=== PATIENT | female | born 1995 | race Caucasian/White ===

== ENCOUNTER → 2017-08-31 | Outpatient (CLI) | payer OTHER ==
[~2017-08-31] MED LIST: CORT5TAB PO; DROS1TAB PO; FLUC150T PO; LEVO75TA43 PO; METR-1 PO; TRIAM.1%T TOPICAL
--- NOTE | 2017-08-31 14:51 | RADRPT ---
EXAM DATE/TIME: 08/31/2017 14:40 [place] COMPARISON: No previous studies available for comparison. INDICATIONS : Left ankle pain for 4 months MEDICAL HISTORY : None. SURGICAL HISTORY : None. ENCOUNTER: Initial ACUITY: 4 - 6 months PAIN SCORE: 5/10 LOCATION: Left entire ankle FINDINGS: Three view exam was performed of the left ankle. The bony structures are in normal alignment. No ev idence of fracture or dislocation. The ankle mortise is intact. Mild soft tissue thickening about t he medial lateral aspect the ankle. No radiopaque foreign bodies are seen. Bony mineralization is no rmal. CONCLUSION: Osseous structures about the ankle are grossly intact. Mild soft tissue thickening. The Sina Lockett MD on August 31, 2017 at 14:49 Board Certified Radiologist. This report was verified electronically.
== END ==
LOC: HRAD 14:28
PROVIDERS: ATTEND Family Medicine
DX: M25.572 Pain in left ankle and joints of left foot (principal)
CPT/HCPCS: 73610

== ENCOUNTER 2018-08-28 16:50 | Observation (INO) ==
[2018-08-28] MEDS ORDERED: Sod Chloride 0.9% Inj 1,000 ML IV.SIG ONE ×2 (17:20→18:55)
--- NOTE | 2018-08-28 17:32 | ED ---
HPI General Chief complaint: Nausea/Vomiting/Diarrhea Stated complaint: vomiting Time Seen by Provider: 08/28/18 17:08 Source: patient and family Mode of arrival: ambulatory Limitations: no limitations History of Present Illness HPI Narrative: 23 YO F with PMH of DM, panhypopituitarism presents to the ED for evaluation of ~6 week history of intermittent nausea and vomiting. The patient endorses 2-3 episodes daily. She is blind, unknown hematemesis. She endorses a few episodes of diarrhea, which she attributes to recent antibiotic use for a UTI. She denies headaches, dizziness, fevers, chills, abdominal pain, back pain, dysuria. She states that she took a dose of Zofran this morning, but vomited shortly afterwards. She states that she has had several PCP appointments since this illness started. She states that she has a gastroenterology appointment on Sep 04. Related Data Home Medications Medication Instructions Recorded Confirmed cetirizine 10 mg PO DAILY 08/06/18 08/28/18 desmopressin 0.2 mg PO BID 08/06/18 08/28/18 drospirenone-ethinyl estradiol 1 tab PO DAILY 08/06/18 08/28/18 [Ocella] levothyroxine 100 mcg PO DAILY 08/06/18 08/28/18 Previous Rx's Medication Instructions Recorded promethazine 12.5 mg PO Q6H PRN #7 tab 08/06/18 ondansetron [Zofran ODT] 4 mg PO Q6H PRN #7 tab 08/24/18 Allergies Allergy/AdvReac Type Severity Reaction Status Date / Time Sulfa (Sulfonamide Allergy Mild Rash, Verified 08/24/18 16:54 Antibiotics) Generalized Review of Systems ROS: all other systems reviewed are negative [facility] Medical History Medical History Demorsier syndrome (Acute) Diabetes insipidus (Acute) History of wisdom tooth extraction (Acute) Hyperpituitarism (Acute) Hypothyroidism (Acute) Social History Social History Substance History: No History of Abuse Second Hand Smoke Exposure: No Smoking Status: Never smoker How Often Do You Have a Drink Containing Alcohol: Monthly or less Recent Travel in [facility] within the Last 8 Weeks: No Recent Out of Country Travel within the Last 8 Weeks: No Course Initial Documented Vital Signs Temperature 97.4 F L 08/28/18 16:55 Pulse Rate 99 H 08/28/18 16:55 Respiratory Rate 18 08/28/18 16:55 Blood Pressure 142/97 H 08/28/18 16:55 Pulse Oximetry 97 08/28/18 16:55 Last Documented Vital Signs Temperature 97.8 F 08/28/18 22:02 Pulse Rate 97 H 08/28/18 22:02 Respiratory Rate 21 08/28/18 22:02 Blood Pressure 108/75 08/28/18 22:02 Pulse Oximetry 97 08/28/18 22:02 Medical Decision Making YAO Attestation YAO supervised visit: Yes Attestation: I was present with the advanced practitioner during the management of this patient. I discussed the case with the advanced practitioner and agree with the findings and plan as documented in their note except as noted below. 23yF with intractable nausea/ vomiting, seen several times in the ED over the past month, found to have hypoglycemia, acute kidney injury/ dehydration. MDM Narrative Medical decision making narrative: 23 YO F with PMH of DM, panhypopituitarism presents to the ED for evaluation of ~6 week history of intermittent nausea and vomiting. The patient endorses 2-3 episodes daily, worsening over time. She is blind, unknown hematemesis. She endorses a few episodes of diarrhea, which she attributes to recent antibiotic use for a UTI. Has a GI appointment on Sep 04. Mom is at bedside and states that she is worried because she will be out of state this weekend and the patient lives alone and will have no one to check on her. Vitals reviewed, afebrile on presentation. BGL ~40. The patient was administered D50, IVF, Zofran. On recheck the BGL is improved. Patient remains nauseated. She was administered a 2nd liter of fluid, IV Compazine and PO Benadryl. Lab work reveals BUN 1.17, GFR 56. Given the patients ongoing symptoms , plan to observe. The patient and her mother are agreeable to the plan. GI consult placed. Dr. Ivey agrees to accept the patient to the medicine service. Please see their notes for presentation. Medical Screen Exam Complete: Yes Emergency Medical Condition: Yes Differential Diagnosis Differential Diagnosis: diabetic gastroparesis versus GERD versus PUD versus metabolic derangement versus intractable nausea and vomiting versus other Lab Data Result diagrams: 08/28/18 19:15 08/28/18 19:15 Lab Results 08/28/18 08/28/18 08/28/18 Range/Units 18:53 19:15 19:15 WBC 9.1 (4.0-11.0) th/mm3 RBC 5.62 H (4.00-5.30) mil/mm3 Hgb 15.3 (11.6-15.3) gm/dL Hct 44.4 (35.0-46.0) % MCV 78.9 L (80.0-100.0) fL MCH 27.2 (27.0-34.0) pg MCHC 34.4 (32.0-36.0) % RDW 14.8 (11.6-17.2) % Plt Count 408 (150-450) th/mm3 MPV 10.4 (7.0-11.0) fL Neut % (Auto) 48.4 (16.0-70.0) % Lymph % (Auto) 33.8 (9.0-44.0) % Andrew % (Auto) 8.6 H (0.0-8.0) % Eos % (Auto) 8.0 H (0.0-4.0) % Baso % (Auto) 1.2 (0.0-2.0) % Neut # (Auto) 4.4 (1.8-7.7) th/mm3 Lymph # (Auto) 3.1 (1.0-4.8) th/mm3 Andrew # (Auto) 0.8 (0.0-0.9) th/mm3 Eos # (Auto) 0.7 H (0.0-0.4) th/mm3 Baso # (Auto) 0.1 (0.0-0.2) th/mm3 WBC Differential . Differential Comment Auto diff final Sodium 137 (136-145) meq/L Potassium 4.0 (3.5-5.1) meq/L Chloride 104 (98-107) meq/L Carbon Dioxide 14.9 L (21.0-32.0) meq/L Anion Gap 18 H (5-15) meq/L BUN Less than 1 L (7-18) mg/dL Creatinine 1.17 H (0.50-1.00) mg/dL Estimated GFR 56 L (>89) mL/min POC Glucose 172 H (68-110) mg/dl Random Glucose 43 L* (74-106) mg/dL Calcium 9.3 (8.5-10.1) mg/dL Total Bilirubin 0.8 (0.2-1.0) mg/dL AST 67 H (15-37) U/L ALT 33 (10-53) U/L Alkaline Phosphatase 62 (45-117) U/L Total Protein 8.5 H D (6.4-8.2) g/dL Albumin 3.8 (3.4-5.0) g/dL Lipase 340 (73-393) U/L Beta HCG, Qual (0-5) mIU/mL Urine Color (Yellw/Straw) Urine Clarity (Clear) Urine pH (5.0-8.5) Ur Specific [place] (1.002-1.035) Urine Protein (Neg-Trace) mg/dL Urine Glucose (UA) (Negative) mg/dL Urine Ketones (Negative) mg/dL Urine Occult Blood (Negative) Urine Nitrate (Negative) Urine Bilirubin (Negative) Urine Urobilinogen (Less than 2) mg/dL Ur Leukocyte Esterase (Negative) Urine RBC (0-3) /hpf Urine WBC (0-5) /hpf Ur Squamous Epith Cells (0-5) /hpf Urine Bacteria (None) /hpf Hyaline Casts (0-3) /lpf Urine Mucus (Occasional) /lpf Micro UA Comment Ur Microscopic Review Urine Culture Comments 08/28/18 08/28/18 08/28/18 Range/Units 19:15 21:12 21:20 WBC (4.0-11.0) th/mm3 RBC (4.00-5.30) mil/mm3 Hgb (11.6-15.3) gm/dL Hct (35.0-46.0) % MCV (80.0-100.0) fL MCH (27.0-34.0) pg MCHC (32.0-36.0) % RDW (11.6-17.2) % Plt Count (150-450) th/mm3 MPV (7.0-11.0) fL Neut % (Auto) (16.0-70.0) % Lymph % (Auto) (9.0-44.0) % Andrew % (Auto) (0.0-8.0) % Eos % (Auto) (0.0-4.0) % Baso % (Auto) (0.0-2.0) % Neut # (Auto) (1.8-7.7) th/mm3 Lymph # (Auto) (1.0-4.8) th/mm3 Andrew # (Auto) (0.0-0.9) th/mm3 Eos # (Auto) (0.0-0.4) th/mm3 Baso # (Auto) (0.0-0.2) th/mm3 WBC Differential Differential Comment Sodium (136-145) meq/L Potassium (3.5-5.1) meq/L Chloride (98-107) meq/L Carbon Dioxide (21.0-32.0) meq/L Anion Gap (5-15) meq/L BUN (7-18) mg/dL Creatinine (0.50-1.00) mg/dL Estimated GFR (>89) mL/min POC Glucose 97 (68-110) mg/dl Random Glucose (74-106) mg/dL Calcium (8.5-10.1) mg/dL Total Bilirubin (0.2-1.0) mg/dL AST (15-37) U/L ALT (10-53) U/L Alkaline Phosphatase (45-117) U/L Total Protein (6.4-8.2) g/dL Albumin (3.4-5.0) g/dL Lipase (73-393) U/L Beta HCG, Qual Less than 1.0 (0-5) mIU/mL Urine Color Yellow (Yellw/Straw) Urine Clarity Clear (Clear) Urine pH 5.0 (5.0-8.5) Ur Specific [place] 1.014 (1.002-1.035) Urine Protein 30 H (Neg-Trace) mg/dL Urine Glucose (UA) 50 (Negative) mg/dL Urine Ketones 80 or greater H (Negative) mg/dL Urine Occult Blood Negative (Negative) Urine Nitrate Negative (Negative) Urine Bilirubin Negative (Negative) Urine Urobilinogen Less than 2 (Less than 2) mg/dL Ur Leukocyte Esterase Trace H (Negative) Urine RBC 1 (0-3) /hpf Urine WBC 6 H (0-5) /hpf Ur Squamous Epith Cells 1 (0-5) /hpf Urine Bacteria Occasional H (None) /hpf Hyaline Casts 12 (0-3) /lpf Urine Mucus Few H (Occasional) /lpf Micro UA Comment Culture not ind Ur Microscopic Review Not Reportable Urine Culture Comments Culture not ind 08/28/18 08/28/18 Range/Units 22:35 23:01 WBC (4.0-11.0) th/mm3 RBC (4.00-5.30) mil/mm3 Hgb (11.6-15.3) gm/dL Hct (35.0-46.0) % MCV (80.0-100.0) fL MCH (27.0-34.0) pg MCHC (32.0-36.0) % RDW (11.6-17.2) % Plt Count (150-450) th/mm3 MPV (7.0-11.0) fL Neut % (Auto) (16.0-70.0) % Lymph % (Auto) (9.0-44.0) % Andrew % (Auto) (0.0-8.0) % Eos % (Auto) (0.0-4.0) % Baso % (Auto) (0.0-2.0) % Neut # (Auto) (1.8-7.7) th/mm3 Lymph # (Auto) (1.0-4.8) th/mm3 Andrew # (Auto) (0.0-0.9) th/mm3 Eos # (Auto) (0.0-0.4) th/mm3 Baso # (Auto) (0.0-0.2) th/mm3 WBC Differential Differential Comment Sodium (136-145) meq/L Potassium (3.5-5.1) meq/L Chloride (98-107) meq/L Carbon Dioxide (21.0-32.0) meq/L Anion Gap (5-15) meq/L BUN (7-18) mg/dL Creatinine (0.50-1.00) mg/dL Estimated GFR (>89) mL/min POC Glucose 66 L 136 H (68-110) mg/dl Random Glucose (74-106) mg/dL Calcium (8.5-10.1) mg/dL Total Bilirubin (0.2-1.0) mg/dL AST (15-37) U/L ALT (10-53) U/L Alkaline Phosphatase (45-117) U/L Total Protein (6.4-8.2) g/dL Albumin (3.4-5.0) g/dL Lipase (73-393) U/L Beta HCG, Qual (0-5) mIU/mL Urine Color (Yellw/Straw) Urine Clarity (Clear) Urine pH (5.0-8.5) Ur Specific [place] (1.002-1.035) Urine Protein (Neg-Trace) mg/dL Urine Glucose (UA) (Negative) mg/dL Urine Ketones (Negative) mg/dL Urine Occult Blood (Negative) Urine Nitrate (Negative) Urine Bilirubin (Negative) Urine Urobilinogen (Less than 2) mg/dL Ur Leukocyte Esterase (Negative) Urine RBC (0-3) /hpf Urine WBC (0-5) /hpf Ur Squamous Epith Cells (0-5) /hpf Urine Bacteria (None) /hpf Hyaline Casts (0-3) /lpf Urine Mucus (Occasional) /lpf Micro UA Comment Ur Microscopic Review Urine Culture Comments Discharge Plan Discharge Disposition Patient Disposition: 30 Still Patient Physicians Team ED Provider: Kavitha Curtis ED Midlevel Provider: Judy Escalona Primary Care Provider: Selina Clay Attending Provider: Gracie Ivey Other Providers: Radu Avalos Status ED Status: Left Department Discharge Information Discharge Date/Time: 08/28/18 21:54
[2018-08-28 19:37] LABS: Baso # (Auto) 0.1 th/mm3 (0.0-0.2); Baso % (Auto) 1.2 % (0.0-2.0); Eos # (Auto) 0.7 th/mm3 (0.0-0.4); Hematocrit 44.4 % (35.0-46.0); Hemoglobin 15.3 gm/dL (11.6-15.3); Lymph # (Auto) 3.1 th/mm3 (1.0-4.8); Lymph % (Auto) 33.8 % (9.0-44.0); Mean Corpuscular HGB Conc 34.4 % (32.0-36.0); Mean Corpuscular Hemoglobin 27.2 pg (27.0-34.0); Mean Corpuscular Volume 78.9 fL (80.0-100.0); Mean Platelet Volume 10.4 fL (7.0-11.0); Mono # (Auto) 0.8 th/mm3 (0.0-0.9); Mono % (Auto) 8.6 % (0.0-8.0); Neut # (Auto) 4.4 th/mm3 (1.8-7.7); Neut % (Auto) 48.4 % (16.0-70.0); Platelet Count 408 th/mm3 (150-450); Red Blood Count 5.62 mil/mm3 (4.00-5.30); Red Cell Distribution Width 14.8 % (11.6-17.2); White Blood Count 9.1 th/mm3 (4.0-11.0)
[2018-08-28 19:59] LABS: Alanine Aminotransferase 33 U/L (10-53); Albumin 3.8 g/dL (3.4-5.0); Alkaline Phosphatase 62 U/L (45-117); Anion Gap 18 meq/L (5-15); Aspartate Aminotransferase 67 U/L (15-37); Calcium 9.3 mg/dL (8.5-10.1); Carbon Dioxide 14.9 meq/L (21.0-32.0); Chloride 104 meq/L (98-107); Glomerular Filtration Rate 56 mL/min (>89); Lipase 340 U/L (73-393); Sodium 137 meq/L (136-145); Total Protein 8.5 g/dL (6.4-8.2)
[2018-08-28 20:06] LABS: Glucose,Random 43 mg/dL (74-106)
[2018-08-28] MEDS ORDERED: Dextrose 50% in Water 50 ML Vial IV.PUSH PRN (21:00)
[2018-08-28] MEDS ORDERED: Acetaminophen 325 MG Tablet PO PRN (21:01)
[2018-08-28] MEDS ORDERED: Bisacodyl 10 MG Supp RECTAL PRN (21:01)
--- NOTE | 2018-08-28 21:04 | P.HPIM ---
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 This is pt' s 5th ER visit in the last month for similar complaints, CT Abd/Pelvis 08/06/18 w/ no acute findings. Has also seen PCP on multiple occasions for same, however no improvement w/ antiemetics. Does have upcoming appt w/ Financial Aid Officer on 09/05 and GI on 09/04/18. On arrival, pt noted to be hypoglycemia w/ BS 40's, s/p D50 w/ improvement, BS now stabilized. BP 142/97, HR 99, O2 afebrile. CBC unremarkable. Creatinine 1.17, previously 0.82 on . AG 18. S/p Zofran and Compazine in ER w/ some improvement. - Diagnosis (1) Intractable nausea and vomiting (2) CARLOS ENRIQUE (acute kidney injury) (3) Hypoglycemia Review of Systems PAST FAMILY HISTORY: Reviewed. No h/o DM or CAD All other systems reviewed negative except as stated in HPI PMFSH - History History Provided By: Patient, Family Member - Medical History Medical History: Medical History (Last Reviewed 08/24/18 @ 16:59 by Srikanth Barbosa MD) Demorsier syndrome Diabetes insipidus History of wisdom tooth extraction Hyperpituitarism Hypothyroidism - Tobacco History Second Hand Smoke Exposure: No Smoking Status: Never smoker - Alcohol History How Often Do You Have a Drink Containing Alcohol: 2 to 3 times a week - Substance Use History Substance History: No History of Abuse - Travel History Recent Travel in the [place] Within the Last 8 Weeks: No Recent Travel Out of the Country Within the Last 8 Weeks: No - Immunization History Tetanus Immunization: Unsure Medications and Allergies Allergies Allergy/AdvReac Type Severity Reaction Status Date / Time Sulfa (Sulfonamide Allergy Mild Rash, Verified 08/24/18 16:54 Antibiotics) Generalized Home Medications Medication Instructions Recorded Confirmed Type cetirizine 10 mg PO DAILY 08/06/18 08/28/18 History desmopressin 0.2 mg PO BID 08/06/18 08/28/18 History drospirenone-ethinyl estradiol 1 tab PO DAILY 08/06/18 08/28/18 History [Ocella] levothyroxine 100 mcg PO DAILY 08/06/18 08/28/18 History Exam Vital signs: Vital Signs 08/28/18 16:55 08/28/18 17:31 Temperature 97.4 F L Pulse Rate 99 H 72 Respiratory Rate 18 18 Blood Pressure 142/97 H 104/72 Pulse Oximetry 97 95 Intake & Output 08/28/18 08/28/18 08/29/18 06:59 18:59 06:59 Intake Total 1000 / 1000 Balance 1000 / 1000 Weight 90.718 kg Intake: IV 1000 / 1000 NS Inj 1,000 ML @ Wide Open IV. 1000 / 1000 SIG BOLUS ONE Rx#:[id number] Narrative: PE: GENERAL: Pleasant young female in no acute distress, legally blind. Mother at bedside. SKIN: Focused skin assessment warm and dry. HEENT: Legally blind. No scleral icterus or conjunctival pallor. No lid lag or facial droop. CARDIOVASCULAR: Regular rate and rhythm. No obvious murmurs to auscultation. No chest tenderness to palpation. RESPIRATORY: No obvious rhonchi or wheezing. Clear to auscultation. Breath sounds equal bilaterally. GASTROINTESTINAL: Abdomen soft, non-tender, nondistended. BS normal. MUSCULOSKELETAL: Extremities without clubbing, cyanosis, or edema. No obvious deformities. NEUROLOGICAL: Awake, alert and oriented x4. No focal neurologic deficits. Moving both upper and lower extremities spontaneously. PSYCHIATRIC: Appropriate mood and affect. Insight and judgment normal. Results - Labs CBC & Chem 7: 08/28/18 19:15 08/28/18 19:15 Labs: Short CBC 08/28/18 Range/Units 19:15 WBC 9.1 (4.0-11.0) th/mm3 Hgb 15.3 (11.6-15.3) gm/dL Hct 44.4 (35.0-46.0) % Plt Count 408 (150-450) th/mm3 BMP 08/28/18 19:15 Sodium 137 Potassium 4.0 Chloride 104 Carbon Dioxide 14.9 L BUN Less than 1 L Creatinine 1.17 H Calcium 9.3 Liver Function 08/28/18 Range/Units 19:15 Total Bilirubin 0.8 (0.2-1.0) mg/dL AST 67 H (15-37) U/L ALT 33 (10-53) U/L Alkaline Phosphatase 62 (45-117) U/L Albumin 3.8 (3.4-5.0) g/dL Caprini VTE Risk Assessment Caprini VTE Risk Assessment: No/Low Risk (score <= 1) Caprini Risk Assessment Model: Point Value = 1 Point Value = 2 Point Value = 3 Point Value = 5 Age 41-60 Minor surgery BMI > 25 kg/m2 Swollen legs Varicose veins or History of unexplained or recurrent spontaneous Oral contraceptives or hormone replacement Sepsis (< 1 month) Serious lung disease, including pneumonia (< 1 month) Abnormal pulmonary function Acute myocardial infarction Congestive heart failure (< 1 month) History of inflammatory bowel disease Medical patient at bed rest Age 61-74 Arthroscopic surgery Major open surgery (> 45 min) Laparoscopic surgery (> 45 min) Malignancy Confined to bed (> 72 hours) Immobilizing plaster cast Central venous access Age >= 75 History of VTE Family history of VTE Factor V Leiden Prothrombin [id number] Lupus anticoagulant Anticardiolipin antibodies Elevated serum homocysteine Heparin-induced thrombocytopenia Other congenital or acquired thrombophilia Stroke (< 1 month) Elective arthroplasty Hip, pelvis, or leg fracture Acute spinal cord injury (< 1 month) Prophylaxis Regimen: Total Risk Factor Score Risk Level Prophylaxis Regimen 0-1 Low Early ambulation 2 Moderate Order ONE of the following: *Sequential Compression Device (SCD) *Heparin 5000 units SQ BID 3-4 Higher Order ONE of the following medications: *Heparin 5000 units SQ TID *Enoxaparin/Lovenox 40 mg SQ daily (WT < 150 kg, CrCl > 30 mL/min) *Enoxaparin/Lovenox 30 mg SQ daily (WT < 150 kg, CrCl > 10-29 mL/min) *Enoxaparin/Lovenox 30 mg SQ BID (WT < 150 kg, CrCl > 30 mL/min) AND/OR *Sequential Compression Device (SCD) 5 or more Highest Order ONE of the following medications: *Heparin 5000 units SQ TID (Preferred with Epidurals) *Enoxaparin/Lovenox 40 mg SQ daily (WT < 150 kg, CrCl > 30 mL/min) *Enoxaparin/Lovenox 30 mg SQ daily (WT < 150 kg, CrCl > 10-29 mL/min) *Enoxaparin/Lovenox 30 mg SQ BID (WT < 150 kg, CrCl > 30 mL/min) AND *Sequential Compression Device (SCD) Assessment and Plan - Assessment (1) Intractable nausea and vomiting Code(s): R11.2 - Nausea with vomiting, unspecified Status: Acute (2) CARLOS ENRIQUE (acute kidney injury) Code(s): N17.9 - Acute kidney failure, unspecified Status: Acute (3) Hypoglycemia Code(s): E16.2 - Hypoglycemia, unspecified Status: Acute - Plan A/P: 1. Intractable Nausea/Vomiting: ongoing x6 wks, minimal improvement w/ antiemetics. Continue Zofran/Compazine, add Tigan. Has upcoming appt w/ GI in [place] on 09/04/18, will consult GI for further eval/intervention as needed. Check B-HCG. IVF for hydration, diet as tolerated. 2. CARLOS ENRIQUE: Creatinine 1.17, previously 0.82 on 08/24/18, secondary to above, continue IVF for hydration, check U/a to eval for underlying UTI, monitor I/O, repeat labs in am. 3. Hypoglycemia: BS 40's on arrival, s/p D50 w/ improvement, Accu-Checks q2h, monitor BS closely. H/o Panhypopituitarism, has upcoming appt w/ Financial Aid Officer 09/05/18. 4. DVT Prophylaxis: SCD/Teds 5. Social work for d/c planning as needed. 6. Case discussed w/ ER physician at length, labs/records/imaging reviewed by me.
[2018-08-28] MEDS ORDERED: Sod Chloride 0.9% Inj 1,000 ML IV.CONT SCH (21:15)
[2018-08-28 21:58] LABS: Bacteria,Urine Occasional /hpf; Bilirubin,Urine Negative (Negative); Clarity,Urine Clear (Clear); Color,Urine Yellow (Yellw/Straw); Glucose,Urine (UA) 50 mg/dL (Negative); Hyaline Casts,Urine 12 /lpf (0-3); Leukocyte Esterase,Urine Trace (Negative); Mucus,Urine Few /lpf (Occasional); Nitrite,Urine Negative (Negative); Specific Gravity,Urine 1.014 (1.002-1.035); Squamous Epithelial Cell,Urine 1 /hpf (0-5)
[2018-08-29] MEDS: Dextrose 5%/NaCl 0.45% Inj 1,000 ML IV.CONT SCH ×2 (01:04→11:33)
[2018-08-29 07:11] LABS: Hematocrit 39.8 % (35.0-46.0); Hemoglobin 14.4 gm/dL (11.6-15.3); Mean Corpuscular Volume 77.4 fL (80.0-100.0); Mean Platelet Volume 10.6 fL (7.0-11.0); Platelet Count 374 th/mm3 (150-450); Red Blood Count 5.14 mil/mm3 (4.00-5.30); Red Cell Distribution Width 14.6 % (11.6-17.2); White Blood Count 9.3 th/mm3 (4.0-11.0)
[2018-08-29 07:34] LABS: Mean Corpuscular HGB Conc 36.2 % (32.0-36.0)
[2018-08-29] MEDS: Senna/Docusate Sodium 8.6/50 MG Tablet PO SCH (08:38)
--- NOTE | 2018-08-29 09:23 | P.CONGI ---
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 Patient presented to the emergency department yesterday with complaints of intractable nausea and vomiting for the past month. Patient has had five visits since the beginning of August for this complaint, patient also reports multiple visits to her PCP for the same. She has tried Zofran and Phenergan with minimal relief in symptoms. She does state that the nausea and vomiting has been intermittent over the past month but that she only has rare good days. She denies any hematemesis or coffee-ground emesis. She denies any associated abdominal pain. She states that her bowel movements are regular, last one was yesterday. Patient denies any fever or chills. Denies ingestion of suspicious foods, recent travel, recent antibiotics. She reports that she takes Aleve rarely for headaches. Denies any dizziness preceding episodes of vomit. Does not notice that the emesis is related to PO intake or more noticeable at certain times throughout the day. She denies any recent new medications other than the antiemetics previously listed. Patient denies any history of GI issues. She states that she drinks alcohol rarely. She denies nicotine use and history of. She denies any illicit drug use. Patient has never had an endoscopy or colonoscopy in the past. Patient does state that she had similar symptoms in eighth grade when she was admitted to PICU with panhypopituitarism, she also had diarrhea at that time. <Jerilyn John - Last Filed: 08/29/18 08:53> Review of Systems Constitutional: Denies chills, Denies fever(s) Cardiovascular: Denies chest pain Respiratory: Denies shortness of breath Gastrointestinal: Reports nausea, Reports vomiting, Denies abdominal pain, Denies black, tarry stools, Denies bright, red blood in stools, Denies vomiting blood <Jerilyn John - Last Filed: 08/29/18 08:53> [facility] - History History Provided By: Patient - Medical History Medical History: Medical History (Last Reviewed 08/28/18 @ 22:19 by NOAH Pierre) Demorsier syndrome Diabetes insipidus History of wisdom tooth extraction Hyperpituitarism Hypothyroidism - Tobacco History Second Hand Smoke Exposure: No Smoking Status: Never smoker - Alcohol History How Often Do You Have a Drink Containing Alcohol: Monthly or less - Substance Use History Substance History: No History of Abuse - Travel History Recent Travel in the [place] Within the Last 8 Weeks: No Recent Travel Out of the Country Within the Last 8 Weeks: No - Immunization History Tetanus Immunization: Unsure <Jerilyn John - Last Filed: 08/29/18 08:53> - Medical History Medical History: Medical History (Last Reviewed 08/28/18 @ 22:19 by NOAH Pierre) Demorsier syndrome Diabetes insipidus History of wisdom tooth extraction Hyperpituitarism Hypothyroidism <Radu Avalos - Last Filed: 08/29/18 22:03> Medications and Allergies Active Medications: Active Medications Acetaminophen (Tylenol) 650 mg PO Q4H PRN PRN Reason: Temp > 100.4 Al Hydroxide/Mg Hydroxide (Milk Of Magnesia Liq) 30 ml PO Q12H PRN PRN Reason: Mild Constipation Bisacodyl (Dulcolax Supp) 10 mg RECTAL DAILY PRN PRN Reason: SEVERE CONSITIPATION Desmopressin Acetate (Ddavp) 0.2 mg PO BID [facility] Last Admin: 08/29/18 08:38 Dose: 0.2 mg Dextrose (D50w Vial) 50 ml IV.PUSH UNSCH PRN PRN Reason: PER HYPOGLYCEMIA PROTOCOL Last Admin: 08/28/18 22:49 Dose: 50 ml Glucagon (Glucagon Inj) 1 mg OTHER PRN PRN PRN Reason: for Hypoglycemia Protocol Dextrose/Sodium Chloride (D5w/1/2 Ns Inj) 1,000 mls @ 100 mls/hr IV.CONT .Q10H [facility] Last Admin: 08/29/18 01:04 Dose: 100 mls/hr Lactulose (Lactulose Liq) 30 ml PO DAILY PRN PRN Reason: SEVERE CONSITIPATION Ondansetron HCl (Zofran Inj) 4 mg IV.PUSH Q6H PRN PRN Reason: NAUSEA OR VOMITING Prochlorperazine Edisylate (Compazine Inj) 10 mg IV.PUSH Q6H PRN PRN Reason: NAUSEA/VOMITING Senna/Docusate Sodium (Shannon-Colace) 1 tab PO BID [facility] Last Admin: 08/29/18 08:38 Dose: 1 tab Sennosides (Senokot) 17.2 mg PO Q12H PRN PRN Reason: Moderate Constipation Trimethobenzamide HCl (Tigan Ing) 200 mg IM Q8H PRN PRN Reason: NAUSEA/VOMITING <Jerilyn John - Last Filed: 08/29/18 08:53> Active Medications: Active Medications Acetaminophen (Tylenol) 650 mg PO Q4H PRN PRN Reason: Temp > 100.4 Al Hydroxide/Mg Hydroxide (Milk Of Magnesia Liq) 30 ml PO Q12H PRN PRN Reason: Mild Constipation Bisacodyl (Dulcolax Supp) 10 mg RECTAL DAILY PRN PRN Reason: SEVERE CONSITIPATION Desmopressin Acetate (Ddavp) 0.2 mg PO BID [facility] Last Admin: 08/29/18 20:44 Dose: 0.2 mg Dextrose (D50w Vial) 50 ml IV.PUSH UNSCH PRN PRN Reason: PER HYPOGLYCEMIA PROTOCOL Last Admin: 08/28/18 22:49 Dose: 50 ml Glucagon (Glucagon Inj) 1 mg OTHER PRN PRN PRN Reason: for Hypoglycemia Protocol Dextrose/Sodium Chloride (D5w/1/2 Ns Inj) 1,000 mls @ 100 mls/hr IV.CONT .Q10H [facility] Last Admin: 08/29/18 11:33 Dose: 100 mls/hr Lactulose (Lactulose Liq) 30 ml PO DAILY PRN PRN Reason: SEVERE CONSITIPATION Levothyroxine Sodium (Synthroid) 100 mcg PO DAILY@0600 [facility] Ondansetron HCl (Zofran Inj) 4 mg IV.PUSH Q6H PRN PRN Reason: NAUSEA OR VOMITING Prochlorperazine Edisylate (Compazine Inj) 10 mg IV.PUSH Q6H PRN PRN Reason: NAUSEA/VOMITING Last Admin: 08/29/18 10:07 Dose: 10 mg Senna/Docusate Sodium (Shannon-Colace) 1 tab PO BID [facility] Last Admin: 08/29/18 08:38 Dose: 1 tab Sennosides (Senokot) 17.2 mg PO Q12H PRN PRN Reason: Moderate Constipation Trimethobenzamide HCl (Tigan Ing) 200 mg IM Q8H PRN PRN Reason: NAUSEA/VOMITING <Radu Avalos - Last Filed: 08/29/18 22:03> Allergies Allergy/AdvReac Type Severity Reaction Status Date / Time Sulfa (Sulfonamide Allergy Mild Rash, Verified 08/24/18 16:54 Antibiotics) Generalized Home Medications Medication Instructions Recorded Confirmed Type cetirizine 10 mg PO DAILY 08/06/18 08/28/18 History desmopressin 0.2 mg PO BID 08/06/18 08/28/18 History drospirenone-ethinyl estradiol 1 tab PO DAILY 08/06/18 08/28/18 History [[place]] levothyroxine 100 mcg PO DAILY 08/06/18 08/28/18 History Exam Vital signs: Vital Signs 08/28/18 16:55 08/28/18 17:31 08/28/18 21:04 Temperature 97.4 F L Pulse Rate 99 H 72 85 Respiratory Rate 18 18 18 Blood Pressure 142/97 H 104/72 147/78 H Pulse Oximetry 97 95 99 08/28/18 22:02 08/29/18 00:00 08/29/18 04:00 Temperature 97.8 F 98.1 F 98.5 F Pulse Rate 97 H 95 H 92 H Respiratory Rate 21 16 16 Blood Pressure 108/75 129/76 92/59 L Pulse Oximetry 97 97 95 08/29/18 07:46 Temperature 98.4 F Pulse Rate 92 H Respiratory Rate 16 Blood Pressure 109/76 Pulse Oximetry 94 L Intake & Output 08/28/18 08/29/18 08/29/18 18:59 06:59 18:59 Intake Total 2300 / 2300 Balance 2300 / 2300 Weight 90.718 kg 90.718 kg Intake: IV 2300 / 2300 NS Inj 1,000 ML @ 100 mls/hr IV 300 / 300 .CONT .Q10H [facility] Rx#:[id number] NS Inj 1,000 ML @ Wide Open IV. 1999 / 1999 [facility] ONE Rx#:[id number] Oral 0 / 0 Other: # Voids 1 Date of Last Bowel Movement 08/28/18 Weight On Admission 90.718 kg - Constitutional no acute distress - Routine HEENT Exam Head: Present: normocephalic, atraumatic - Routine Respiratory Exam Absent: accessory muscle use - Routine Cardiovascular Exam Present: RRR - Routine Abdominal Exam Present: soft, normoactive bowel sounds. Absent: tenderness, distended - Routine Skin Exam Present: dry, warm - Routine Neurological Exam Present: alert, oriented X3 <Jerilyn John - Last Filed: 08/29/18 08:53> Vital signs: Vital Signs 08/29/18 00:00 08/29/18 04:00 08/29/18 07:46 Temperature 98.1 F 98.5 F 98.4 F Pulse Rate 95 H 92 H 92 H Respiratory Rate 16 16 16 Blood Pressure 129/76 92/59 L 109/76 Pulse Oximetry 97 95 94 L 08/29/18 12:01 08/29/18 15:33 08/29/18 19:32 Temperature 97.9 F 98.2 F 98.6 F Pulse Rate 95 H 90 87 Respiratory Rate 16 16 14 Blood Pressure 104/74 99/64 L 123/74 Pulse Oximetry 94 L 96 97 Intake & Output 08/29/18 08/29/18 08/30/18 06:59 18:59 06:59 Intake Total 2300 / 2300 1000 / 1000 Balance 2300 / 2300 1000 / 1000 Weight 90.718 kg Intake: IV 2300 / 2300 1000 / 1000 D5W/1/2 NS Inj 1,000 ML @ 100 1000 / 1000 mls/hr IV.CONT .Q10H [facility] Rx#: [id number] NS Inj 1,000 ML @ 100 mls/hr IV 300 / 300 .CONT .Q10H [facility] Rx#:[id number] NS Inj 1,000 ML @ Wide Open IV. 1999 SIG BOLUS ONE Rx#:[id number] Oral 0 / 0 Other: # Voids 1 Date of Last Bowel Movement 08/28/18 08/28/18 Weight On Admission 90.718 kg <Radu Avalos - Last Filed: 08/29/18 22:03> Results - Labs CBC & Chem 7: 08/29/18 05:53 08/28/18 19:15 Labs: Laboratory Results - last 24 hr 08/28/18 08/28/18 08/28/18 18:53 19:15 19:15 WBC 9.1 RBC 5.62 H Hgb 15.3 Hct 44.4 MCV 78.9 L MCH 27.2 MCHC 34.4 RDW 14.8 Plt Count 408 MPV 10.4 Prelim Diff (Auto) Neut % (Auto) 48.4 Lymph % (Auto) 33.8 [place] % (Auto) 8.6 H Eos % (Auto) 8.0 H Baso % (Auto) 1.2 Neut # (Auto) 4.4 Lymph # (Auto) 3.1 [place] # (Auto) 0.8 Eos # (Auto) 0.7 H Baso # (Auto) 0.1 WBC Differential . Differential Comment Auto diff final Sodium 137 Potassium 4.0 Chloride 104 Carbon Dioxide 14.9 L Anion Gap 18 H BUN Less than 1 L Creatinine 1.17 H Estimated GFR 56 L POC Glucose 172 H Random Glucose 43 L* Calcium 9.3 Total Bilirubin 0.8 AST 67 H ALT 33 Alkaline Phosphatase 62 Total Protein 8.5 H D Albumin 3.8 Lipase 340 Beta HCG, Qual Urine Color Urine Clarity Urine pH Ur Specific Mallie Urine Protein Urine Glucose (UA) Urine Ketones Urine Occult Blood Urine Nitrate Urine Bilirubin Urine Urobilinogen Ur Leukocyte Esterase Urine RBC Urine WBC Ur Squamous Epith Cells Urine Bacteria Hyaline Casts Urine Mucus Micro UA Comment Ur Microscopic Review Urine Culture Comments 08/28/18 08/28/18 08/28/18 19:15 21:12 21:20 WBC RBC Hgb Hct MCV MCH MCHC RDW Plt Count MPV Prelim Diff (Auto) Neut % (Auto) Lymph % (Auto) [place] % (Auto) Eos % (Auto) Baso % (Auto) Neut # (Auto) Lymph # (Auto) [place] # (Auto) Eos # (Auto) Baso # (Auto) WBC Differential Differential Comment Sodium Potassium Chloride Carbon Dioxide Anion Gap BUN Creatinine Estimated GFR POC Glucose 97 Random Glucose Calcium Total Bilirubin AST ALT Alkaline Phosphatase Total Protein Albumin Lipase Beta HCG, Qual Less than 1.0 Urine Color Yellow Urine Clarity Clear Urine pH 5.0 Ur Specific Mallie 1.014 Urine Protein 30 H Urine Glucose (UA) 50 Urine Ketones 80 or greater H Urine Occult Blood Negative Urine Nitrate Negative Urine Bilirubin Negative Urine Urobilinogen Less than 2 Ur Leukocyte Esterase Trace H Urine RBC 1 Urine WBC 6 H Ur Squamous Epith Cells 1 Urine Bacteria Occasional H Hyaline Casts 12 Urine Mucus Few H Micro UA Comment Culture not ind Ur Microscopic Review Not Reportable Urine Culture Comments Culture not ind 08/28/18 08/28/18 08/28/18 22:35 23:01 23:57 WBC RBC Hgb Hct MCV MCH MCHC RDW Plt Count MPV Prelim Diff (Auto) Neut % (Auto) Lymph % (Auto) [place] % (Auto) Eos % (Auto) Baso % (Auto) Neut # (Auto) Lymph # (Auto) [place] # (Auto) Eos # (Auto) Baso # (Auto) WBC Differential Differential Comment Sodium Potassium Chloride Carbon Dioxide Anion Gap BUN Creatinine Estimated GFR POC Glucose 66 L 136 H 129 H Random Glucose Calcium Total Bilirubin AST ALT Alkaline Phosphatase Total Protein Albumin Lipase Beta HCG, Qual Urine Color Urine Clarity Urine pH Ur Specific Mallie Urine Protein Urine Glucose (UA) Urine Ketones Urine Occult Blood Urine Nitrate Urine Bilirubin Urine Urobilinogen Ur Leukocyte Esterase Urine RBC Urine WBC Ur Squamous Epith Cells Urine Bacteria Hyaline Casts Urine Mucus Micro UA Comment Ur Microscopic Review Urine Culture Comments 08/29/18 08/29/18 08/29/18 02:07 03:57 05:53 WBC 9.3 RBC 5.14 Hgb 14.4 Hct 39.8 MCV 77.4 L MCH 28.0 MCHC 36.2 H RDW 14.6 Plt Count 374 MPV 10.6 Prelim Diff (Auto) Manual diff required Neut % (Auto) Lymph % (Auto) [place] % (Auto) Eos % (Auto) Baso % (Auto) Neut # (Auto) Lymph # (Auto) [place] # (Auto) Eos # (Auto) Baso # (Auto) WBC Differential Differential Comment . Sodium Potassium Chloride Carbon Dioxide Anion Gap BUN Creatinine Estimated GFR POC Glucose 88 84 Random Glucose Calcium Total Bilirubin AST ALT Alkaline Phosphatase Total Protein Albumin Lipase Beta HCG, Qual Urine Color Urine Clarity Urine pH Ur Specific Mallie Urine Protein Urine Glucose (UA) Urine Ketones Urine Occult Blood Urine Nitrate Urine Bilirubin Urine Urobilinogen Ur Leukocyte Esterase Urine RBC Urine WBC Ur Squamous Epith Cells Urine Bacteria Hyaline Casts Urine Mucus Micro UA Comment Ur Microscopic Review Urine Culture Comments 08/29/18 08/29/18 06:44 08:49 WBC RBC Hgb Hct MCV MCH MCHC RDW Plt Count MPV Prelim Diff (Auto) Neut % (Auto) Lymph % (Auto) [place] % (Auto) Eos % (Auto) Baso % (Auto) Neut # (Auto) Lymph # (Auto) [place] # (Auto) Eos # (Auto) Baso # (Auto) WBC Differential Differential Comment Sodium Potassium Chloride Carbon Dioxide Anion Gap BUN Creatinine Estimated GFR POC Glucose 85 99 Random Glucose Calcium Total Bilirubin AST ALT Alkaline Phosphatase Total Protein Albumin Lipase Beta HCG, Qual Urine Color Urine Clarity Urine pH Ur Specific Mallie Urine Protein Urine Glucose (UA) Urine Ketones Urine Occult Blood Urine Nitrate Urine Bilirubin Urine Urobilinogen Ur Leukocyte Esterase Urine RBC Urine WBC Ur Squamous Epith Cells Urine Bacteria Hyaline Casts Urine Mucus Micro UA Comment Ur Microscopic Review Urine Culture Comments <DionicioJerilyn hart - Last Filed: 08/29/18 08:53> - Labs CBC & Chem 7: 08/29/18 05:53 08/29/18 10:42 Labs: Laboratory Results - last 24 hr 08/28/18 08/28/18 08/28/18 19:15 22:35 23:01 WBC RBC Hgb Hct MCV MCH MCHC RDW Plt Count MPV Prelim Diff (Auto) WBC Differential Seg Neuts % (Manual) Lymphocytes % (Manual) Monocytes % (Manual) Eosinophils % (Manual) Abs Neuts (Manual) Differential Comment Platelet Estimate Platelet Morphology Sodium Potassium Chloride Carbon Dioxide Anion Gap BUN Creatinine Estimated GFR POC Glucose 66 L 136 H Random Glucose Hemoglobin A1c Calcium Total Bilirubin AST ALT Alkaline Phosphatase Total Protein Albumin TSH Beta HCG, Qual Less than 1.0 08/28/18 08/29/18 08/29/18 23:57 02:07 03:57 WBC RBC Hgb Hct MCV MCH MCHC RDW Plt Count MPV Prelim Diff (Auto) WBC Differential Seg Neuts % (Manual) Lymphocytes % (Manual) Monocytes % (Manual) Eosinophils % (Manual) Abs Neuts (Manual) Differential Comment Platelet Estimate Platelet Morphology Sodium Potassium Chloride Carbon Dioxide Anion Gap BUN Creatinine Estimated GFR POC Glucose 129 H 88 84 Random Glucose Hemoglobin A1c Calcium Total Bilirubin AST ALT Alkaline Phosphatase Total Protein Albumin TSH Beta HCG, Qual 08/29/18 08/29/18 08/29/18 05:53 05:53 06:44 WBC 9.3 RBC 5.14 Hgb 14.4 Hct 39.8 MCV 77.4 L MCH 28.0 MCHC 36.2 H RDW 14.6 Plt Count 374 MPV 10.6 Prelim Diff (Auto) Manual diff required WBC Differential Manual diff final Seg Neuts % (Manual) 47 Lymphocytes % (Manual) 31 Monocytes % (Manual) 13 H Eosinophils % (Manual) 9 H Abs Neuts (Manual) 4.4 Differential Comment . Platelet Estimate Normal Platelet Morphology Normal Sodium Potassium Chloride Carbon Dioxide Anion Gap BUN Creatinine Estimated GFR POC Glucose 85 Random Glucose Hemoglobin A1c 4.8 Calcium Total Bilirubin AST ALT Alkaline Phosphatase Total Protein Albumin TSH Beta HCG, Qual 08/29/18 08/29/18 08/29/18 08:49 10:42 10:42 WBC RBC Hgb Hct MCV MCH MCHC RDW Plt Count MPV Prelim Diff (Auto) WBC Differential Seg Neuts % (Manual) Lymphocytes % (Manual) Monocytes % (Manual) Eosinophils % (Manual) Abs Neuts (Manual) Differential Comment Platelet Estimate Platelet Morphology Sodium 139 Potassium 3.4 L Chloride 107 Carbon Dioxide 15.9 L Anion Gap 16 H BUN Less than 1 L Creatinine 1.08 H Estimated GFR 62 L POC Glucose 99 Random Glucose 99 Hemoglobin A1c Calcium 8.7 Total Bilirubin 0.6 AST 47 H ALT 24 Alkaline Phosphatase 51 Total Protein 6.9 D Albumin 3.1 L D TSH 5.870 H Beta HCG, Qual 08/29/18 08/29/18 08/29/18 12:09 18:30 20:41 WBC RBC Hgb Hct MCV MCH MCHC RDW Plt Count MPV Prelim Diff (Auto) WBC Differential Seg Neuts % (Manual) Lymphocytes % (Manual) Monocytes % (Manual) Eosinophils % (Manual) Abs Neuts (Manual) Differential Comment Platelet Estimate Platelet Morphology Sodium Potassium Chloride Carbon Dioxide Anion Gap BUN Creatinine Estimated GFR POC Glucose 111 H 102 112 H Random Glucose Hemoglobin A1c Calcium Total Bilirubin AST ALT Alkaline Phosphatase Total Protein Albumin TSH Beta HCG, Qual <Robbie,Radu E - Last Filed: 08/29/18 22:03> Assessment and Plan - Plan Assessment: Intractable nausea and vomitingpatient has had 5 visits to the emergency department since the beginning of August as well as multiple visits to her PCP with complaints of nausea and emesis. Patient states that it has been intermittent for the past month but that she has only had a few good days. She reports significant weight loss secondary to above. Denies hematemesis and coffee ground emesis (is legally blind and lives alone) Patient denies any associated abdominal pain or changes in bowel habits (according to ER not has had a few episodes of diarrhea). She denies any ingestion of suspicious foods, recent travel, recent antibiotics (according to ER records has recently been on abx for UTI). Denies any associated fever or chills. Denies any history of GI issues. Has never had EGD or colonoscopy. Denies any illicit drug use, nicotine use. Does report rare ETOH. Work up: Liver ultrasound (08/24/2018) mild splenomegaly. Increased echogenicity of the liver suggesting fatty infiltration. Poor visualization of the common bile duct and pancreas. CT abdomen/pelvis with IV contrast (08/06/2010) no acute CT abnormality in the abdomen or pelvis. Normal appendix. No evidence for bowel obstruction. Diffuse decreased hepatic density consistent with hepatic steatosis versus medical liver disease. On admission patient severely hypoglycemic, labs consistent with acute kidney injury and significant amount of ketones present in the urine. De morsier syndrome with hypoparathyroidism, hypothyroidism, diabetes insipidus and legally blind secondary to this Plan: EGD tomorrow Obtain consent OK for clear liquid today NPO after MN Check TSH level IV fluid resuscitation Antiemetics Stool studies Pt does have captain's assistant, if no improvement consider discussing with them Further recommendations based on course Pt has been seen and examined by myself and Dr. Avalos and this note is written on his behalf <Jerilyn John - Last Filed: 08/29/18 08:53> - Plan Patient seen and examined Agree with above Continue with current supportive care Monitor labs EGD tomorrow <Radu Avalos - Last Filed: 08/29/18 22:03>
[2018-08-29 10:15] LABS: Eosinophils 9 % (0-4); Lymphocytes 31 % (9-44); Monocytes 13 % (0-8); Platelet Estimate Normal (Normal); Platelet Morphology Normal (Normal)
[2018-08-29 11:28] LABS: Alanine Aminotransferase 24 U/L (10-53); Albumin 3.1 g/dL (3.4-5.0); Alkaline Phosphatase 51 U/L (45-117); Anion Gap 16 meq/L (5-15); Aspartate Aminotransferase 47 U/L (15-37); Calcium 8.7 mg/dL (8.5-10.1); Carbon Dioxide 15.9 meq/L (21.0-32.0); Chloride 107 meq/L (98-107); Glomerular Filtration Rate 62 mL/min (>89); Glucose,Random 99 mg/dL (74-106); Potassium 3.4 meq/L (3.5-5.1); Sodium 139 meq/L (136-145); Total Protein 6.9 g/dL (6.4-8.2)
--- NOTE | 2018-08-29 11:33 | P.PN ---
Subjective Interval history: Follow-up on patient with ongoing nausea and vomiting. Patient seen and examined. Patient denies any complaints of nausea, vomiting or abdominal pain at this time. She states she feels ok at this time. Discussed with nursing staff, no adverse events noted overnight. Plan for EGD in the morning. Physical Exam Vital signs: Vital Signs 08/28/18 16:55 08/28/18 17:31 08/28/18 21:04 Temperature 97.4 F L Pulse Rate 99 H 72 85 Respiratory Rate 18 18 18 Blood Pressure 142/97 H 104/72 147/78 H Pulse Oximetry 97 95 99 08/28/18 22:02 08/29/18 00:00 08/29/18 04:00 Temperature 97.8 F 98.1 F 98.5 F Pulse Rate 97 H 95 H 92 H Respiratory Rate 21 16 16 Blood Pressure 108/75 129/76 92/59 L Pulse Oximetry 97 97 95 08/29/18 07:46 Temperature 98.4 F Pulse Rate 92 H Respiratory Rate 16 Blood Pressure 109/76 Pulse Oximetry 94 L Intake & Output 08/28/18 08/29/18 08/29/18 18:59 06:59 18:59 Intake Total 2300 / 2300 Balance 2300 / 2300 Weight 90.718 kg 90.718 kg Intake: IV 2300 / 2300 NS Inj 1,000 ML @ 100 mls/hr IV 300 / 300 .CONT .Q10H [facility] Rx#:[id number] NS Inj 1,000 ML @ Wide Open IV. 1999 / 1999 [facility] Rx#:[id number] Oral 0 / 0 Other: # Voids 1 Date of Last Bowel Movement 08/28/18 Weight On Admission 90.718 kg Narrative: GENERAL: WDWN overweight young female, INAD. Awake and alert. +blindness. SKIN: Warm and dry. HEENT: Atraumatic. Normocephalic. Legally blind. No scleral icterus. No injection or drainage. No nasal bleeding or discharge. Mucous membranes pink and moist. NECK: Trachea midline. CARDIOVASCULAR: Regular rate and rhythm. No murmur auscultated. RESPIRATORY: No accessory muscle use. Clear to auscultation. Breath sounds equal bilaterally. GASTROINTESTINAL: Abdomen soft, non-tender, nondistended. +BS. MUSCULOSKELETAL: Extremities without clubbing, cyanosis, or edema. No obvious deformities. NEUROLOGICAL: Awake and alert. No obvious cranial nerve deficits. Motor grossly within normal limits. Able to move all extremities. Normal speech. PSYCHIATRIC: Appropriate mood and affect; insight and judgment normal. Results - Labs CBC & Chem 7: 08/29/18 05:53 08/28/18 19:15 Laboratory Results - last 24 hr 08/28/18 08/28/18 08/28/18 18:53 19:15 19:15 WBC 9.1 RBC 5.62 H Hgb 15.3 Hct 44.4 MCV 78.9 L MCH 27.2 MCHC 34.4 RDW 14.8 Plt Count 408 MPV 10.4 Prelim Diff (Auto) Neut % (Auto) 48.4 Lymph % (Auto) 33.8 [place] % (Auto) 8.6 H Eos % (Auto) 8.0 H Baso % (Auto) 1.2 Neut # (Auto) 4.4 Lymph # (Auto) 3.1 [place] # (Auto) 0.8 Eos # (Auto) 0.7 H Baso # (Auto) 0.1 WBC Differential . Seg Neuts % (Manual) Lymphocytes % (Manual) Monocytes % (Manual) Eosinophils % (Manual) Abs Neuts (Manual) Differential Comment Auto diff final Platelet Estimate Platelet Morphology Sodium 137 Potassium 4.0 Chloride 104 Carbon Dioxide 14.9 L Anion Gap 18 H BUN Less than 1 L Creatinine 1.17 H Estimated GFR 56 L POC Glucose 172 H Random Glucose 43 L* Calcium 9.3 Total Bilirubin 0.8 AST 67 H ALT 33 Alkaline Phosphatase 62 Total Protein 8.5 H D Albumin 3.8 Lipase 340 Beta HCG, Qual Urine Color Urine Clarity Urine pH Ur Specific [place] Urine Protein Urine Glucose (UA) Urine Ketones Urine Occult Blood Urine Nitrate Urine Bilirubin Urine Urobilinogen Ur Leukocyte Esterase Urine RBC Urine WBC Ur Squamous Epith Cells Urine Bacteria Hyaline Casts Urine Mucus Micro UA Comment Ur Microscopic Review Urine Culture Comments 08/28/18 08/28/18 08/28/18 19:15 21:12 21:20 WBC RBC Hgb Hct MCV MCH MCHC RDW Plt Count MPV Prelim Diff (Auto) Neut % (Auto) Lymph % (Auto) [place] % (Auto) Eos % (Auto) Baso % (Auto) Neut # (Auto) Lymph # (Auto) [place] # (Auto) Eos # (Auto) Baso # (Auto) WBC Differential Seg Neuts % (Manual) Lymphocytes % (Manual) Monocytes % (Manual) Eosinophils % (Manual) Abs Neuts (Manual) Differential Comment Platelet Estimate Platelet Morphology Sodium Potassium Chloride Carbon Dioxide Anion Gap BUN Creatinine Estimated GFR POC Glucose 97 Random Glucose Calcium Total Bilirubin AST ALT Alkaline Phosphatase Total Protein Albumin Lipase Beta HCG, Qual Less than 1.0 Urine Color Yellow Urine Clarity Clear Urine pH 5.0 Ur Specific [place] 1.014 Urine Protein 30 H Urine Glucose (UA) 50 Urine Ketones 80 or greater H Urine Occult Blood Negative Urine Nitrate Negative Urine Bilirubin Negative Urine Urobilinogen Less than 2 Ur Leukocyte Esterase Trace H Urine RBC 1 Urine WBC 6 H Ur Squamous Epith Cells 1 Urine Bacteria Occasional H Hyaline Casts 12 Urine Mucus Few H Micro UA Comment Culture not ind Ur Microscopic Review Not Reportable Urine Culture Comments Culture not ind 08/28/18 08/28/18 08/28/18 22:35 23:01 23:57 WBC RBC Hgb Hct MCV MCH MCHC RDW Plt Count MPV Prelim Diff (Auto) Neut % (Auto) Lymph % (Auto) [place] % (Auto) Eos % (Auto) Baso % (Auto) Neut # (Auto) Lymph # (Auto) [place] # (Auto) Eos # (Auto) Baso # (Auto) WBC Differential Seg Neuts % (Manual) Lymphocytes % (Manual) Monocytes % (Manual) Eosinophils % (Manual) Abs Neuts (Manual) Differential Comment Platelet Estimate Platelet Morphology Sodium Potassium Chloride Carbon Dioxide Anion Gap BUN Creatinine Estimated GFR POC Glucose 66 L 136 H 129 H Random Glucose Calcium Total Bilirubin AST ALT Alkaline Phosphatase Total Protein Albumin Lipase Beta HCG, Qual Urine Color Urine Clarity Urine pH Ur Specific [place] Urine Protein Urine Glucose (UA) Urine Ketones Urine Occult Blood Urine Nitrate Urine Bilirubin Urine Urobilinogen Ur Leukocyte Esterase Urine RBC Urine WBC Ur Squamous Epith Cells Urine Bacteria Hyaline Casts Urine Mucus Micro UA Comment Ur Microscopic Review Urine Culture Comments 08/29/18 08/29/18 08/29/18 02:07 03:57 05:53 WBC 9.3 RBC 5.14 Hgb 14.4 Hct 39.8 MCV 77.4 L MCH 28.0 MCHC 36.2 H RDW 14.6 Plt Count 374 MPV 10.6 Prelim Diff (Auto) Manual diff required Neut % (Auto) Lymph % (Auto) [place] % (Auto) Eos % (Auto) Baso % (Auto) Neut # (Auto) Lymph # (Auto) [place] # (Auto) Eos # (Auto) Baso # (Auto) WBC Differential Manual diff final Seg Neuts % (Manual) 47 Lymphocytes % (Manual) 31 Monocytes % (Manual) 13 H Eosinophils % (Manual) 9 H Abs Neuts (Manual) 4.4 Differential Comment . Platelet Estimate Normal Platelet Morphology Normal Sodium Potassium Chloride Carbon Dioxide Anion Gap BUN Creatinine Estimated GFR POC Glucose 88 84 Random Glucose Calcium Total Bilirubin AST ALT Alkaline Phosphatase Total Protein Albumin Lipase Beta HCG, Qual Urine Color Urine Clarity Urine pH Ur Specific [place] Urine Protein Urine Glucose (UA) Urine Ketones Urine Occult Blood Urine Nitrate Urine Bilirubin Urine Urobilinogen Ur Leukocyte Esterase Urine RBC Urine WBC Ur Squamous Epith Cells Urine Bacteria Hyaline Casts Urine Mucus Micro UA Comment Ur Microscopic Review Urine Culture Comments 08/29/18 08/29/18 06:44 08:49 WBC RBC Hgb Hct MCV MCH MCHC RDW Plt Count MPV Prelim Diff (Auto) Neut % (Auto) Lymph % (Auto) [place] % (Auto) Eos % (Auto) Baso % (Auto) Neut # (Auto) Lymph # (Auto) [place] # (Auto) Eos # (Auto) Baso # (Auto) WBC Differential Seg Neuts % (Manual) Lymphocytes % (Manual) Monocytes % (Manual) Eosinophils % (Manual) Abs Neuts (Manual) Differential Comment Platelet Estimate Platelet Morphology Sodium Potassium Chloride Carbon Dioxide Anion Gap BUN Creatinine Estimated GFR POC Glucose 85 99 Random Glucose Calcium Total Bilirubin AST ALT Alkaline Phosphatase Total Protein Albumin Lipase Beta HCG, Qual Urine Color Urine Clarity Urine pH Ur Specific [place] Urine Protein Urine Glucose (UA) Urine Ketones Urine Occult Blood Urine Nitrate Urine Bilirubin Urine Urobilinogen Ur Leukocyte Esterase Urine RBC Urine WBC Ur Squamous Epith Cells Urine Bacteria Hyaline Casts Urine Mucus Micro UA Comment Ur Microscopic Review Urine Culture Comments Assessment and Plan - Assessment (1) Intractable nausea and vomiting Code(s): R11.2 - Nausea with vomiting, unspecified Status: Acute (2) CARLOS ERNIQUE (acute kidney injury) Code(s): N17.9 - Acute kidney failure, unspecified Status: Acute (3) Hypoglycemia Code(s): E16.2 - Hypoglycemia, unspecified Status: Acute - Plan 23-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 Intractable Nausea/Vomiting: ongoing x6 wks, minimal improvement w/ antiemetics. Has upcoming appt w/ GI in [place] on 09/04/18 Beta HCG less than 1 -Continue Zofran/Compazine and Tigan. -GI following, appreciate assistance. Plan for EGD in am. -Continue on IVF for hydration -clear liquid diet per GI CARLOS ENRIQUE: Creatinine 1.17, previously 0.82 on 08/24/18, secondary to above UA trace leukocytes, 6 white blood cells, occasional bacteria. We will send specimen for culture. Patient is asymptomatic -continue IVF for hydration -monitor I/O -avoid nephrotoxic agents -Repeat BMP pending Hypoglycemia: BS 40's on arrival, s/p D50 w/ improvement BS better this am -Accu-Checks q2h -monitor BS closely H/o Panhypopituitarism Demorsier syndrome Diabetes insipidus TSH 5.870 -continue on home dose of levothyroxine and Desmopressin -has upcoming appt w/ [facility] 09/05/18 DVT Prophylaxis: SCD/Teds Code Status: Full Discussed Condition With: patient, nursing staff, Dr. Benoit Discharge Planning: Not ready for discharge
[2018-08-29 15:40] LABS: Hemoglobin A1c 4.8 % (4.3-6.0)
[2018-08-30] MEDS: Senna/Docusate Sodium 8.6/50 MG Tablet PO SCH ×3 (00:56→22:17)
[2018-08-30] MEDS: Dextrose 5%/NaCl 0.45% Inj 1,000 ML IV.CONT SCH ×2 (00:57→15:24)
[2018-08-30] MEDS: Levothyroxine 100 MCG Tablet PO SCH (05:09)
--- NOTE | 2018-08-30 08:58 | P.PN ---
Subjective Interval history: Follow-up on patient with ongoing nausea and vomiting. Patient seen and examined. Patient complains of persistent nausea and vomiting. She is actively vomiting as I enter the room. She complains of abdominal pain. She denies any fever or chills. Physical Exam Vital signs: Vital Signs 08/29/18 12:01 08/29/18 15:33 08/29/18 19:32 Temperature 97.9 F 98.2 F 98.6 F Pulse Rate 95 H 90 87 Respiratory Rate 16 16 14 Blood Pressure 104/74 99/64 L 123/74 Pulse Oximetry 94 L 96 97 08/30/18 00:00 08/30/18 04:00 08/30/18 08:00 Temperature 98.7 F 98.9 F 98.6 F Pulse Rate 92 H 99 H 127 H Respiratory Rate 16 16 16 Blood Pressure 106/77 122/78 117/76 Pulse Oximetry 97 98 96 Intake & Output 08/29/18 08/30/18 08/30/18 18:59 06:59 18:59 Intake Total 1000 / 1000 1000 / 1000 Balance 1000 / 1000 1000 / 1000 Intake: IV 1000 / 1000 1000 / 1000 D5W/1/2 NS Inj 1,000 ML @ 100 1000 / 1000 1000 / 1000 mls/hr IV.CONT .Q10H [facility] Rx#: [id number] Other: # Voids 1 Date of Last Bowel Movement 08/28/18 Narrative: GENERAL: WDWN overweight young female, INAD. Awake and alert. +blindness. Sitting up in bed actively vomiting nonbloody emesis into basin. SKIN: Warm and dry. HEENT: Atraumatic. Normocephalic. Legally blind. No scleral icterus. No injection or drainage. No nasal bleeding or discharge. Mucous membranes pink and moist. NECK: Trachea midline. CARDIOVASCULAR: Regular rate and rhythm. No murmur auscultated. RESPIRATORY: No accessory muscle use. Clear to auscultation. Breath sounds equal bilaterally. GASTROINTESTINAL: Abdomen soft, nondistended. +mild diffuse tenderness to palpation. +BS. MUSCULOSKELETAL: Extremities without clubbing, cyanosis, or edema. No obvious deformities. NEUROLOGICAL: Awake and alert. No obvious cranial nerve deficits. Motor grossly within normal limits. Able to move all extremities. Normal speech. PSYCHIATRIC: Appropriate mood and affect; insight and judgment normal. Results - Labs CBC & Chem 7: 08/29/18 05:53 08/30/18 09:01 Laboratory Results - last 24 hr 08/29/18 08/29/18 08/29/18 05:53 05:53 10:42 WBC Differential Manual diff final Seg Neuts % (Manual) 47 Lymphocytes % (Manual) 31 Monocytes % (Manual) 13 H Eosinophils % (Manual) 9 H Abs Neuts (Manual) 4.4 Platelet Estimate Normal Platelet Morphology Normal Sodium 139 Potassium 3.4 L Chloride 107 Carbon Dioxide 15.9 L Anion Gap 16 H BUN Less than 1 L Creatinine 1.08 H Estimated GFR 62 L POC Glucose Random Glucose 99 Hemoglobin A1c 4.8 Calcium 8.7 Total Bilirubin 0.6 AST 47 H ALT 24 Alkaline Phosphatase 51 Total Protein 6.9 D Albumin 3.1 L D TSH 08/29/18 08/29/18 08/29/18 10:42 12:09 18:30 WBC Differential Seg Neuts % (Manual) Lymphocytes % (Manual) Monocytes % (Manual) Eosinophils % (Manual) Abs Neuts (Manual) Platelet Estimate Platelet Morphology Sodium Potassium Chloride Carbon Dioxide Anion Gap BUN Creatinine Estimated GFR POC Glucose 111 H 102 Random Glucose Hemoglobin A1c Calcium Total Bilirubin AST ALT Alkaline Phosphatase Total Protein Albumin TSH 5.870 H 08/29/18 08/30/18 20:41 02:43 WBC Differential Seg Neuts % (Manual) Lymphocytes % (Manual) Monocytes % (Manual) Eosinophils % (Manual) Abs Neuts (Manual) Platelet Estimate Platelet Morphology Sodium Potassium Chloride Carbon Dioxide Anion Gap BUN Creatinine Estimated GFR POC Glucose 112 H 114 H Random Glucose Hemoglobin A1c Calcium Total Bilirubin AST ALT Alkaline Phosphatase Total Protein Albumin TSH Assessment and Plan - Assessment (1) Intractable nausea and vomiting Code(s): R11.2 - Nausea with vomiting, unspecified Status: Acute (2) CARLOS ENRIQUE (acute kidney injury) Code(s): N17.9 - Acute kidney failure, unspecified Status: Acute (3) Hypoglycemia Code(s): E16.2 - Hypoglycemia, unspecified Status: Acute - Plan 23-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 Intractable Nausea/Vomiting: ongoing x6 wks, minimal improvement w/ antiemetics. Has upcoming appt w/ GI in [place] on 09/04/18 Beta HCG less than 1 08/30 continues to have ongoing nausea and vomiting -Continue Zofran/Compazine and Tigan. -GI following, appreciate assistance. Plan for EGD today. Keep NPO. -stool studies ordered but no BM as of yet -Continue on IVF for hydration Hypokalemia, secondary to above K 2.9, Mag 1.6 -IV replacement ordered -repeat labs in am to monitor response CARLOS ENRIQUE: Suspect secondary to poor po hydration secondary to intractable N/V Creatinine 1.17, previously 0.82 on 08/24/18 -creatinine improving, now 1.03 -continue IVF for hydration -monitor I/O -avoid nephrotoxic agents -continue to monitor kidney function closely Hypoglycemia: BS 40's on arrival, s/p D50 w/ improvement BS better but still running low 100s -continue on D5 -Accu-Checks -monitor BS closely -hypoglycemic protocol H/o Panhypopituitarism Demorsier syndrome Diabetes insipidus TSH 5.870 -continue on home dose of levothyroxine and Desmopressin -has upcoming appt w/ [facility] 09/05/18 DVT Prophylaxis: SCD/Teds Code Status: Full Discussed Condition With: patient, nursing staff, Dr. Benoit Discharge Planning: Not ready for discharge
[2018-08-30 09:55] LABS: Anion Gap 13 meq/L (5-15); Calcium 8.9 mg/dL (8.5-10.1); Carbon Dioxide 18.3 meq/L (21.0-32.0); Chloride 107 meq/L (98-107); Glomerular Filtration Rate 65 mL/min (>89); Glucose,Random 113 mg/dL (74-106); Magnesium 1.6 mg/dL (1.5-2.5); Sodium 138 meq/L (136-145)
[2018-08-30 09:58] LABS: Potassium 2.9 meq/L (3.5-5.1)
[2018-08-30] MEDS ORDERED: Mag Sulf 1 gm/100 ml Premix 100 ML IV.SIG ONE (10:04)
[2018-08-30] MEDS: Potassium Chlor 20 mEq Premix 20 MEQ/100 ML PIGGYBACK IV.SIG SCH ×2 (10:41→18:34)
[2018-08-30] MEDS ORDERED: POTASSIUM CHLORIDE IV.CONT SCH (11:00)
[2018-08-30] MEDS ORDERED: DEXTROSE IV.CONT SCH (11:00)
[2018-08-30] MEDS ORDERED: NACL 0.45% IV.CONT SCH (11:00)
[2018-08-30] MEDS: KCL 10 mEq/D5W/NaCl 0.45% Inj 1,000 ML IV.SIG SCH ×2 (11:29→22:15)
[2018-08-30] MEDS ORDERED: Sugammadex Inj 200 MG/2 ML Vial IV.PUSH ONE (13:42)
--- NOTE | 2018-08-30 16:11 | P.PCN ---
Date of procedure: 08/30/18 Pre-op diagnosis: Nausea and vomiting Procedure: PROCEDURE PERFORMED EGD with biopsy PROCEDURE: The procedure, risks and benefits were discussed with Patient/POA and informed consent was obtained. Anesthesia sedated Patient with Diprivan. Patient was placed in the left lateral decubitus position. EGD: The Pentax videoscope was introduced through the oropharynx and advanced to the second portion of the duodenum under direct visualization. Retroflexion was performed in the stomach. FINDINGS: The esophagus this was normal The stomach there was patchy erythema in the antrum and gastric body the antrum was biopsied otherwise unremarkable The duodenum this was normal ESTIMATED BLOOD LOSS: None SPECIMENS REMOVED: Gastric biopsy COMPLICATIONS: None IMPRESSION: Mild gastritis PLAN: Await biopsies Advance diet Monitor labs Anesthesia: MAC Condition: stable Disposition: floor
[2018-08-31] MEDS: KCL 10 mEq/D5W/NaCl 0.45% Inj 1,000 ML IV.SIG SCH ×2 (02:39→12:44)
[2018-08-31] MEDS: Levothyroxine 100 MCG Tablet PO SCH (06:29)
[2018-08-31] MEDS: Senna/Docusate Sodium 8.6/50 MG Tablet PO SCH ×2 (08:33→20:34)
--- NOTE | 2018-08-31 08:54 | P.PNGI ---
Physical Exam Vital signs: Vital Signs 08/30/18 11:39 08/30/18 14:08 08/30/18 14:15 Temperature 98.2 F 98.3 F Pulse Rate 101 H 106 H 105 H Respiratory Rate 16 16 16 Blood Pressure 119/78 110/83 106/79 Pulse Oximetry 95 97 97 08/30/18 14:30 08/30/18 15:44 08/30/18 20:00 Temperature 98.0 F 98.8 F Pulse Rate 117 H 89 109 H Respiratory Rate 16 16 14 Blood Pressure 111/81 119/82 108/75 Pulse Oximetry 97 98 100 08/31/18 00:00 08/31/18 04:00 08/31/18 07:55 Temperature 98.4 F 98.9 F 101.0 F H Pulse Rate 119 H 105 H 110 H Respiratory Rate 18 14 16 Blood Pressure 109/69 101/70 113/75 Pulse Oximetry 95 97 85 L Intake & Output 08/30/18 08/31/18 08/31/18 18:59 06:59 18:59 Intake Total 1600 / 1600 1100 / 1100 Balance 1600 / 1600 1100 / 1100 Intake: IV 1200 / 1200 1100 / 1100 D5W/1/2 NS Inj 1,000 ML @ 100 1000 / 1000 mls/hr IV.CONT .Q10H [facility] Rx#: [id number] D5W/1/2NS + KCL 10 mEq Inj 1, 1000 / 1000 000 ML @ 70 mls/hr IV.SIG . [id number] [facility] Rx#:[id number] Magnesium Sulfate 1 gm/D5W 100 100 / 100 ml Premix 100 ML @ 100 mls/hr IV.SIG ONCE ONE Rx#:[id number] KCl 20 mEq Premix Inj 20 meq In 100 / 100 100 / 100 100 ml @ 50 mls/hr IV.SIG Q2H [facility] Rx#:[id number] Oral 0 / 0 Anesthesia Amount 400 / 400 Other: # Voids 1 1 Date of Last Bowel Movement 08/28/18 08/28/18 Results - Labs CBC & Chem 7: 08/29/18 05:53 08/30/18 09:01 Laboratory Results - last 24 hr 08/30/18 08/30/18 08/30/18 09:01 17:53 22:23 Sodium 138 Potassium 2.9 L* Chloride 107 Carbon Dioxide 18.3 L Anion Gap 13 BUN Less than 1 L Creatinine 1.03 H Estimated GFR 65 L POC Glucose 113 H 106 Random Glucose 113 H Calcium 8.9 Magnesium 1.6 08/31/18 06:32 Sodium Potassium Chloride Carbon Dioxide Anion Gap BUN Creatinine Estimated GFR POC Glucose 105 Random Glucose Calcium Magnesium Assessment and Plan - Plan Intractable nausea and vomitingpatient has had 5 visits to the emergency department since the beginning of August as well as multiple visits to her PCP with complaints of nausea and emesis. Patient states that it has been intermittent for the past month but that she has only had a few good days. She reports significant weight loss secondary to above. Denies hematemesis and coffee ground emesis (is legally blind and lives alone) Patient denies any associated abdominal pain or changes in bowel habits (according to ER not has had a few episodes of diarrhea). She denies any ingestion of suspicious foods, recent travel, recent antibiotics (according to ER records has recently been on abx for UTI). Denies any associated fever or chills. Denies any history of GI issues. Has never had EGD or colonoscopy. Denies any illicit drug use, nicotine use. Does report rare ETOH. Work up: Liver ultrasound (08/24/2018) mild splenomegaly. Increased echogenicity of the liver suggesting fatty infiltration. Poor visualization of the common bile duct and pancreas. CT abdomen/pelvis with IV contrast (08/06/2010) no acute CT abnormality in the abdomen or pelvis. Normal appendix. No evidence for bowel obstruction. Diffuse decreased hepatic density consistent with hepatic steatosis versus medical liver disease. On admission patient severely hypoglycemic, labs consistent with acute kidney injury and significant amount of ketones present in the urine. 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 Syed, note was written on his behalf
--- NOTE | 2018-08-31 09:10 | P.PN ---
Subjective Interval history: Follow-up on patient with ongoing nausea and vomiting. Patient seen and examined. Patient continues to have ongoing emesis. She vomited last night and is actively vomiting this morning. She denies any abdominal pain. She has a fever 101. She denies any cough or shortness of breath. She denies any urinary complaints. She does not know when her last bowel movement was. She has not eaten anything since admission. Physical Exam Vital signs: Vital Signs 08/30/18 11:39 08/30/18 14:08 08/30/18 14:15 Temperature 98.2 F 98.3 F Pulse Rate 101 H 106 H 105 H Respiratory Rate 16 16 16 Blood Pressure 119/78 110/83 106/79 Pulse Oximetry 95 97 97 08/30/18 14:30 08/30/18 15:44 08/30/18 20:00 Temperature 98.0 F 98.8 F Pulse Rate 117 H 89 109 H Respiratory Rate 16 16 14 Blood Pressure 111/81 119/82 108/75 Pulse Oximetry 97 98 100 08/31/18 00:00 08/31/18 04:00 08/31/18 07:55 Temperature 98.4 F 98.9 F 101.0 F H Pulse Rate 119 H 105 H 110 H Respiratory Rate 18 14 16 Blood Pressure 109/69 101/70 113/75 Pulse Oximetry 95 97 85 L Intake & Output 08/30/18 08/31/18 08/31/18 18:59 06:59 18:59 Intake Total 1600 / 1600 1100 / 1100 Balance 1600 / 1600 1100 / 1100 Intake: IV 1200 / 1200 1100 / 1100 D5W/1/2 NS Inj 1,000 ML @ 100 1000 / 1000 mls/hr IV.CONT .Q10H [facility] Rx#: [id number] D5W/1/2NS + KCL 10 mEq Inj 1, 1000 / 1000 000 ML @ 70 mls/hr IV.SIG . [id number] [facility] Rx#:[id number] Magnesium Sulfate 1 gm/D5W 100 100 / 100 ml Premix 100 ML @ 100 mls/hr IV.SIG ONCE ONE Rx#:[id number] KCl 20 mEq Premix Inj 20 meq In 100 / 100 100 / 100 100 ml @ 50 mls/hr IV.SIG Q2H [facility] Rx#:[id number] Oral 0 / 0 Anesthesia Amount 400 / 400 Other: # Voids 1 1 Date of Last Bowel Movement 08/28/18 08/28/18 Narrative: GENERAL: WDWN overweight young female, INAD. Awake and alert. +blindness. SKIN: Warm and dry. HEENT: Atraumatic. Normocephalic. Legally blind. No scleral icterus. No injection or drainage. No nasal bleeding or discharge. Mucous membranes pink and moist. NECK: Trachea midline. CARDIOVASCULAR: Tachycardic. No murmur auscultated. RESPIRATORY: No accessory muscle use. Clear to auscultation. Breath sounds equal bilaterally. GASTROINTESTINAL: Abdomen soft, nondistended, nontender to palpation. +BS. Patient began gagging with palpation of LUQ. MUSCULOSKELETAL: Extremities without clubbing, cyanosis, or edema. No obvious deformities. NEUROLOGICAL: Awake and alert. No obvious cranial nerve deficits. Motor grossly within normal limits. Able to move all extremities. Normal speech. PSYCHIATRIC: Appropriate mood and affect; insight and judgment normal. Results - Labs CBC & Chem 7: 08/31/18 09:00 08/31/18 09:00 Laboratory Results - last 24 hr 08/30/18 08/30/18 08/30/18 09:01 17:53 22:23 Sodium 138 Potassium 2.9 L* Chloride 107 Carbon Dioxide 18.3 L Anion Gap 13 BUN Less than 1 L Creatinine 1.03 H Estimated GFR 65 L POC Glucose 113 H 106 Random Glucose 113 H Calcium 8.9 Magnesium 1.6 08/31/18 08/31/18 06:32 08:38 Sodium Potassium Chloride Carbon Dioxide Anion Gap BUN Creatinine Estimated GFR POC Glucose 105 97 Random Glucose Calcium Magnesium - Procedures Date of procedure: 08/30/18 Pre-op diagnosis: Nausea and vomiting Procedure: PROCEDURE PERFORMED EGD with biopsy PROCEDURE: The procedure, risks and benefits were discussed with Patient/POA and informed consent was obtained. Anesthesia sedated Patient with Diprivan. Patient was placed in the left lateral decubitus position. EGD: The Pentax videoscope was introduced through the oropharynx and advanced to the second portion of the duodenum under direct visualization. Retroflexion was performed in the stomach. FINDINGS: The esophagus this was normal The stomach there was patchy erythema in the antrum and gastric body the antrum was biopsied otherwise unremarkable The duodenum this was normal ESTIMATED BLOOD LOSS: None SPECIMENS REMOVED: Gastric biopsy COMPLICATIONS: None IMPRESSION: Mild gastritis PLAN: Await biopsies Advance diet Monitor labs Assessment and Plan - Assessment (1) Intractable nausea and vomiting Code(s): R11.2 - Nausea with vomiting, unspecified Status: Acute (2) CARLOS ENRIQUE (acute kidney injury) Code(s): N17.9 - Acute kidney failure, unspecified Status: Acute (3) Hypoglycemia Code(s): E16.2 - Hypoglycemia, unspecified Status: Acute - Plan 23-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 Intractable Nausea/Vomiting: ongoing x6 wks, minimal improvement w/ antiemetics. Has upcoming appt w/ GI in [place] on 09/04/18 Beta HCG less than 1 08/31 continues to have ongoing nausea and vomiting -Continue Zofran/Compazine and Tigan. -GI following, appreciate assistance. s/p EGD showing only mild gastritis. -stool studies ordered but no BM as of yet -Continue on IVF for hydration -unable to tolerate diet -will obtain CT abd/pelvis for further evaluation. SIMON Ortiz of GI service. Fever, uncertain etiology white count and lactic acid WNL -obtain CXR and UA -Blood cx ordered -follow up on CT results -supportive care -monitor temperature trend Hypokalemia, secondary to ongoing GI loss K 3.1 after IV repletion -addiontal IV replacement ordered -repeat labs in am to monitor response CARLOS ENRIQUE: Suspect secondary to poor po hydration secondary to intractable N/V Creatinine 1.17, previously 0.82 on 08/24/18 -creatinine had improved to 1.03, now up to 1.15 -continue IVF for hydration -monitor I/O -avoid nephrotoxic agents -continue to monitor kidney function closely Hypoglycemia: BS 40's on arrival, s/p D50 w/ improvement BS better but still running low 100s -continue on D5 -Accu-Checks -monitor BS closely -hypoglycemic protocol H/o Panhypopituitarism Demorsier syndrome Diabetes insipidus TSH 5.870 -continue on home dose of levothyroxine and Desmopressin -has upcoming appt w/ Field Logistics Coordinator 09/05/18 DVT Prophylaxis: SCD/Teds Code Status: Full Discussed Condition With: patient, nursing staff, Dr. Benoit Discharge Planning: Not ready for discharge
--- NOTE | 2018-08-31 09:27 | XR ---
EXAM DATE: 08/31/2018 9:18 AM EDT AGE/SEX: 23 years / Female INDICATIONS: Intractable vomiting and dehydration. CLINICAL DATA: This is the patient's initial encounter. Patient reports that signs and symptoms have been present for 2 days and indicates a pain score of 5/10. MEDICAL/SURGICAL HISTORY: None. None. COMPARISON: No prior exams available for comparison. FINDINGS: Underinflated AP view of the chest demonstrates a normal size cardiac silhouette. No pleural effusion , airspace consolidation, or pneumothorax is identified. The bones and soft tissues demonstrate no ac gregg finding. CONCLUSION: Underinflated examination without an acute cardiopulmonary abnormality identified. Electronically signed by: Kris Melendrez MD 08/31/2018 9:25 AM EDT
[2018-08-31 10:59] LABS: Hematocrit 38.4 % (35.0-46.0); Hemoglobin 13.6 gm/dL (11.6-15.3); Mean Corpuscular HGB Conc 35.5 % (32.0-36.0); Mean Corpuscular Hemoglobin 27.7 pg (27.0-34.0); Mean Corpuscular Volume 78.1 fL (80.0-100.0); Mean Platelet Volume 10.8 fL (7.0-11.0); Platelet Count 302 th/mm3 (150-450); Red Blood Count 4.92 mil/mm3 (4.00-5.30); Red Cell Distribution Width 15.3 % (11.6-17.2); White Blood Count 10.9 th/mm3 (4.0-11.0)
--- NOTE | 2018-08-31 11:05 | CT ---
EXAM DATE: 08/31/2018 10:58 AM EDT AGE/SEX: 23 years / Female INDICATIONS: Abdomen pain with nausea and vomiting. CLINICAL DATA: This is the patient's initial encounter. Patient reports that signs and symptoms have been present for 1 day and indicates a pain score of 2/10. MEDICAL/SURGICAL HISTORY: Diabetes. Hypothyroidism. hypoglycemia, Desmorier syndrome None. ORAL CONTRAST: No oral contrast ingested. RADIATION DOSE: 33.60 CTDI (mGy) ; Combined studies COMPARISON: [facility] – [place], CT ABDOMEN & PELVIS W CONTRAST, 08/06/2018. . TECHNIQUE: Volumetrically acquired axial images were obtained through the abdomen without and after administration of intravenous 95 ml Omnipaque 350 (iohexol) nonionic water-soluble contrast as a cu mulative dose for multiple exams. Using automated exposure control and adjustment of the mA and/or kV according to patient size, radiation dose was kept as low as reasonably achievable to obtain optim al diagnostic quality images. DICOM format image data is available electronically for review and com parison. FINDINGS: Lower chest: No acute abnormality is identified. Hepatobiliary: The liver measures 17 cm in length and demonstrates diffuse decreased density. No foca l lesion is seen on this noncontrast examination. No calcified gallstones are present. There is no bi le duct dilatation. Kidneys: No hydronephrosis, stone, or mass. Adrenal Glands: Within normal limits. Spleen: Within normal limits. Pancreas: Within normal limits. Vascular: The aorta is nonaneurysmal. Bowel/Mesentery: The stomach and small bowel demonstrate no abnormality. No acute colon abnormality i s seen. There is no free intraperitoneal air or fluid. Appendix and terminal ileum have a normal appe arance. Abdominal Wall: No hernia is visualized. Retroperitoneum: No lymphadenopathy. Bladder: No wall thickening or mass. Reproductive: Within normal limits. Inguinal: No lymphadenopathy or hernia. Musculoskeletal: No acute osseous abnormality is identified. CONCLUSION: 1. No abnormality is identified to explain the abdominal pain on this noncontrast examination. 2. Hepatic steatosis. Electronically signed by: Kris Melendrez MD 08/31/2018 11:04 AM EDT
[2018-08-31 11:14] LABS: Albumin 2.9 g/dL (3.4-5.0); Anion Gap 12 meq/L (5-15); Aspartate Aminotransferase 48 U/L (15-37); Calcium 9.1 mg/dL (8.5-10.1); Carbon Dioxide 18.1 meq/L (21.0-32.0); Chloride 105 meq/L (98-107); Glomerular Filtration Rate 57 mL/min (>89); Glucose,Random 102 mg/dL (74-106); Magnesium 1.6 mg/dL (1.5-2.5); Potassium 3.1 meq/L (3.5-5.1); Sodium 135 meq/L (136-145)
[2018-08-31 11:15] LABS: Alanine Aminotransferase 21 U/L (10-53)
[2018-08-31 11:17] LABS: Alkaline Phosphatase 52 U/L (45-117); Total Protein 6.3 g/dL (6.4-8.2)
[2018-08-31] MEDS: Potassium Chlor 20 mEq Premix 20 MEQ/100 ML PIGGYBACK IV.SIG SCH ×2 (12:44→18:40)
[2018-08-31] MEDS: Heparin - SQ 10,000 UNITS/ML Vial SQ SCH ×2 (13:01→20:34)
--- NOTE | 2018-08-31 14:58 | NM ---
EXAM DATE: 08/31/2018 2:46 PM EDT AGE/SEX: 23 years / Female INDICATIONS: Intractable nausea and vomiting. CLINICAL DATA: This is the patient's subsequent encounter. Patient reports that signs and symptoms h ave been present for 1 month and indicates a pain score of 1/10. MEDICAL/SURGICAL HISTORY: Diabetes. Hypothyroidism. Demorsier syndrome, hyperpituitarism. . COMPARISON: [facility] [place] W & W/O CONTRAST, 08/31/2018. [facility] [place]OM[place] & PELVIS W CONTRAST, 08/06/2018. . DOSE: 4.3 mCi Tc-99m mebrofenin i.v. TECHNIQUE: Following the intravenous administration of radiotracer, dynamic sequential images were pe rformed with continuous acquisition. Time-activity curves were generated. FINDINGS: Hepatic Kinetics: There is prompt uptake of radiotracer in the liver. No focal defects are seen. T here is normal rate of washout from the hepatic parenchyma. Biliary Clearance: Activity is first seen in the extrahepatic biliary system at 10 minutes. There is normal excretion into the small bowel. Gallbladder: There is nonvisualization of the gallbladder suggestive of cystic duct obstruction. Biliary-Enteric Reflux: None observed. CONCLUSION: 1. Nonvisualization of the gallbladder suggestive of cystic duct obstruction. Clinical correlation i s recommended. Electronically signed by: Kyle Garcia MD 08/31/2018 2:56 PM EDT
[2018-08-31] MEDS ORDERED: Potassium Chlor 20 mEq Premix 20 MEQ/100 ML PIGGYBACK IV.SIG SCH (19:00)
[2018-09-01] MEDS: KCL 10 mEq/D5W/NaCl 0.45% Inj 1,000 ML IV.SIG SCH ×2 (01:58→15:45)
[2018-09-01] MEDS: Levothyroxine 100 MCG Tablet PO SCH (06:20)
--- NOTE | 2018-09-01 08:25 | P.PN ---
Subjective Interval history: Follow-up on patient with ongoing nausea and vomiting. Patient seen and examined. Patient continues to have persistent nausea and vomiting. Per nursing staff, patient vomited 100 cc of bilious fluid this morning. Patient continues to refuse all of her meals. She is drinking a small amount. She denies any nausea vomiting or abdominal pain at this time. She denies any chest pain or shortness of breath. She denies any dysuria, frequency or urgency. Reviewed HIDA scan results with patient. She says she will not undergo any surgery. Physical Exam Vital signs: Vital Signs 08/31/18 11:52 08/31/18 15:56 08/31/18 19:33 Temperature 98.1 F 98.3 F 98.3 F Pulse Rate 103 H 89 93 H Respiratory Rate 16 16 18 Blood Pressure 100/61 105/51 L 109/73 Pulse Oximetry 95 83 L 97 09/01/18 00:00 09/01/18 04:00 09/01/18 08:00 Temperature 98.5 F 98.5 F Pulse Rate 109 H 101 H Respiratory Rate 18 18 16 Blood Pressure 122/64 114/74 Pulse Oximetry 94 L 98 Intake & Output 08/31/18 09/01/18 09/01/18 18:59 06:59 18:59 Intake Total 340 / 340 1200 / 1200 150 / 150 Output Total 250 / 250 Balance 340 / 340 1200 / 1200 -100 / -100 Intake: IV 100 / 100 1200 / 1200 D5W/1/2NS + KCL 10 mEq Inj 1, 1000 / 1000 000 ML @ 70 mls/hr IV.SIG . [id number] [facility] Rx#:[id number] KCl 20 mEq Premix Inj 20 meq In 100 / 100 200 / 200 100 ml @ 50 mls/hr IV.SIG Q2H [facility] Rx#:[id number] Oral 240 / 240 150 / 150 Output: Emesis 250 / 250 Other: # Voids 2 Date of Last Bowel Movement 08/31/18 09/01/18 # Bowel Movements 2 # Emeses 3 Narrative: GENERAL: WDWN overweight young female, INAD. Awake and alert. +blindness. Appears comfortable. SKIN: Warm and dry. HEENT: Atraumatic. Normocephalic. Legally blind. No scleral icterus. No injection or drainage. No nasal bleeding or discharge. Mucous membranes pink and moist. NECK: Trachea midline. CARDIOVASCULAR: Tachycardic. No murmur auscultated. RESPIRATORY: No accessory muscle use. Clear to auscultation. Breath sounds equal bilaterally. GASTROINTESTINAL: Abdomen soft, nondistended, nontender to palpation. +BS. MUSCULOSKELETAL: Extremities without clubbing, cyanosis, or edema. No obvious deformities. NEUROLOGICAL: Awake and alert. No obvious cranial nerve deficits. Motor grossly within normal limits. Able to move all extremities. Normal speech. PSYCHIATRIC: Appropriate mood and affect; insight and judgment normal. Results - Labs CBC & Chem 7: 08/31/18 09:00 08/31/18 09:00 Laboratory Results - last 24 hr 08/31/18 08/31/18 08/31/18 08:38 09:00 09:00 WBC 10.9 RBC 4.92 Hgb 13.6 Hct 38.4 MCV 78.1 L MCH 27.7 MCHC 35.5 RDW 15.3 Plt Count 302 MPV 10.8 Sodium 135 L Potassium 3.1 L Chloride 105 Carbon Dioxide 18.1 L Anion Gap 12 BUN Less than 1 L Creatinine 1.15 H Estimated GFR 57 L POC Glucose 97 Random Glucose 102 Lactic Acid Calcium 9.1 Magnesium 1.6 Total Bilirubin 1.4 H AST 48 H ALT 21 Alkaline Phosphatase 52 Total Protein 6.3 L D Albumin 2.9 L Stl C.difficile DNA Amp St C. diff Tox Epid 027 08/31/18 08/31/18 08/31/18 10:25 12:34 16:30 WBC RBC Hgb Hct MCV MCH MCHC RDW Plt Count MPV Sodium Potassium Chloride Carbon Dioxide Anion Gap BUN Creatinine Estimated GFR POC Glucose 120 H Random Glucose Lactic Acid 1.4 Calcium Magnesium Total Bilirubin AST ALT Alkaline Phosphatase Total Protein Albumin Stl C.difficile DNA Amp Negative St C. diff Tox Epid 027 Negative 08/31/18 08/31/18 09/01/18 18:46 20:27 03:22 WBC RBC Hgb Hct MCV MCH MCHC RDW Plt Count MPV Sodium Potassium Chloride Carbon Dioxide Anion Gap BUN Creatinine Estimated GFR POC Glucose 113 H 109 99 Random Glucose Lactic Acid Calcium Magnesium Total Bilirubin AST ALT Alkaline Phosphatase Total Protein Albumin Stl C.difficile DNA Amp St C. diff Tox Epid 027 09/01/18 08:10 WBC RBC Hgb Hct MCV MCH MCHC RDW Plt Count MPV Sodium Potassium Chloride Carbon Dioxide Anion Gap BUN Creatinine Estimated GFR POC Glucose 114 H Random Glucose Lactic Acid Calcium Magnesium Total Bilirubin AST ALT Alkaline Phosphatase Total Protein Albumin Stl C.difficile DNA Amp St C. diff Tox Epid 027 - Imaging Impressions Abdomen CT 08/31/18 00:00 CONCLUSION: 1. No abnormality is identified to explain the abdominal pain on this noncontrast examination. 2. Hepatic steatosis. Chest X-Ray 08/31/18 00:00 CONCLUSION: Underinflated examination without an acute cardiopulmonary abnormality identified. Hepatobiliary Scan Nuclear Medicine 08/31/18 00:00 CONCLUSION: 1. Nonvisualization of the gallbladder suggestive of cystic duct obstruction. Clinical correlation is recommended. - Procedures Date of procedure: 08/30/18 Pre-op diagnosis: Nausea and vomiting Procedure: PROCEDURE PERFORMED EGD with biopsy PROCEDURE: The procedure, risks and benefits were discussed with Patient/POA and informed consent was obtained. Anesthesia sedated Patient with Diprivan. Patient was placed in the left lateral decubitus position. EGD: The Pentax videoscope was introduced through the oropharynx and advanced to the second portion of the duodenum under direct visualization. Retroflexion was performed in the stomach. FINDINGS: The esophagus this was normal The stomach there was patchy erythema in the antrum and gastric body the antrum was biopsied otherwise unremarkable The duodenum this was normal ESTIMATED BLOOD LOSS: None SPECIMENS REMOVED: Gastric biopsy COMPLICATIONS: None IMPRESSION: Mild gastritis PLAN: Await biopsies Advance diet Monitor labs Assessment and Plan - Assessment (1) Intractable nausea and vomiting Code(s): R11.2 - Nausea with vomiting, unspecified Status: Acute (2) CARLOS ENRIQUE (acute kidney injury) Code(s): N17.9 - Acute kidney failure, unspecified Status: Acute (3) Hypoglycemia Code(s): E16.2 - Hypoglycemia, unspecified Status: Acute - Plan 23-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 Intractable Nausea/Vomiting: ongoing x6 wks, minimal improvement w/ antiemetics. Has upcoming appt w/ GI in [place] on 09/04/18 Beta HCG less than 1 CT abd/pelvis without any abnormality except for hepatic steatosis patient refusing MRI head continues to have ongoing nausea and vomiting HIDA scan suggestive of cystic duct obstruction -Continue Zofran/Compazine and Tigan. -GI following, appreciate assistance. s/p EGD showing only mild gastritis. -GS consulted, appreciate assistance -Continue on IVF for hydration -unable to tolerate diet Fever, transient, resolved white count and lactic acid WNL CXR unremarkable, images reviewed by me UCX with immature growth -Blood cx with no growth, continue to follow until finalized -supportive care -monitor temperature trend Hypokalemia, secondary to ongoing GI loss K 3.1 after IV repletion -additional IV replacement ordered -awaiting today's labs to monitor response CARLOS ENRIQUE: Suspect secondary to poor po hydration secondary to intractable N/V Creatinine 1.17, previously 0.82 on 08/24/18 -creatinine had improved to 1.03, now up to 1.15 - awaiting today's labs to monitor response -continue IVF for hydration -monitor I/O -avoid nephrotoxic agents -continue to monitor kidney function closely Hypoglycemia: BS 40's on arrival, s/p D50 w/ improvement BS better but still running low 100s -continue on D5 -Accu-Checks -monitor BS closely -hypoglycemic protocol H/o Panhypopituitarism Demorsier syndrome Diabetes insipidus TSH 5.870 -continue on home dose of levothyroxine and Desmopressin -has upcoming appt w/ Forestry Technical Officer 09/05/18 DVT Prophylaxis: SCD/Teds Code Status: Full Discussed Condition With: patient, nursing staff, Dr. Benoit Discharge Planning: Not ready for discharge. Discharge pending GS evaluation.
--- NOTE | 2018-09-01 09:12 | P.PNGI ---
Subjective Interval history: Patient is sleeping appears comfortable at this time denies any further nausea unknown timing No abdominal pain. Asking if she can go home HIDA scan results reviewed with patient Physical Exam Vital signs: Vital Signs 08/31/18 11:52 08/31/18 15:56 08/31/18 19:33 Temperature 98.1 F 98.3 F 98.3 F Pulse Rate 103 H 89 93 H Respiratory Rate 16 16 18 Blood Pressure 100/61 105/51 L 109/73 Pulse Oximetry 95 83 L 97 09/01/18 00:00 09/01/18 04:00 09/01/18 08:00 Temperature 98.5 F 98.5 F Pulse Rate 109 H 101 H Respiratory Rate 18 18 16 Blood Pressure 122/64 114/74 Pulse Oximetry 94 L 98 Intake & Output 08/31/18 09/01/18 09/01/18 18:59 06:59 18:59 Intake Total 340 / 340 1200 / 1200 150 / 150 Output Total 250 / 250 Balance 340 / 340 1200 / 1200 -100 / -100 Intake: IV 100 / 100 1200 / 1200 D5W/1/2NS + KCL 10 mEq Inj 1, 1000 / 1000 000 ML @ 70 mls/hr IV.SIG . [id number] [facility] Rx#:[id number] KCl 20 mEq Premix Inj 20 meq In 100 / 100 200 / 200 100 ml @ 50 mls/hr IV.SIG Q2H [facility] Rx#:[id number] Oral 240 / 240 150 / 150 Output: Emesis 250 / 250 Other: # Voids 2 Date of Last Bowel Movement 08/31/18 09/01/18 # Bowel Movements 2 # Emeses 3 - Constitutional no acute distress, morbidly obese (Blind,) - Routine HEENT Exam Head: Present: normocephalic ENT: Present: mucous membranes moist - Routine Respiratory Exam Present: accessory muscle use (No obvious shortness of breath at rest) - Routine Abdominal Exam Present: soft (Round, no obvious tenderness this a.m. vomiting has ceased) Results - Labs CBC & Chem 7: 08/31/18 09:00 08/31/18 09:00 Laboratory Results - last 24 hr 08/31/18 08/31/18 08/31/18 09:00 09:00 10:25 WBC 10.9 RBC 4.92 Hgb 13.6 Hct 38.4 MCV 78.1 L MCH 27.7 MCHC 35.5 RDW 15.3 Plt Count 302 MPV 10.8 Sodium 135 L Potassium 3.1 L Chloride 105 Carbon Dioxide 18.1 L Anion Gap 12 BUN Less than 1 L Creatinine 1.15 H Estimated GFR 57 L POC Glucose Random Glucose 102 Lactic Acid 1.4 Calcium 9.1 Magnesium 1.6 Total Bilirubin 1.4 H AST 48 H ALT 21 Alkaline Phosphatase 52 Total Protein 6.3 L D Albumin 2.9 L Stl C.difficile DNA Amp St C. diff Tox Epid 027 08/31/18 08/31/18 08/31/18 12:34 16:30 18:46 WBC RBC Hgb Hct MCV MCH MCHC RDW Plt Count MPV Sodium Potassium Chloride Carbon Dioxide Anion Gap BUN Creatinine Estimated GFR POC Glucose 120 H 113 H Random Glucose Lactic Acid Calcium Magnesium Total Bilirubin AST ALT Alkaline Phosphatase Total Protein Albumin Stl C.difficile DNA Amp Negative St C. diff Tox Epid 027 Negative 08/31/18 09/01/18 09/01/18 20:27 03:22 08:10 WBC RBC Hgb Hct MCV MCH MCHC RDW Plt Count MPV Sodium Potassium Chloride Carbon Dioxide Anion Gap BUN Creatinine Estimated GFR POC Glucose 109 99 114 H Random Glucose Lactic Acid Calcium Magnesium Total Bilirubin AST ALT Alkaline Phosphatase Total Protein Albumin Stl C.difficile DNA Amp St C. diff Tox Epid 027 - Imaging Impressions Abdomen CT 08/31/18 00:00 CONCLUSION: 1. No abnormality is identified to explain the abdominal pain on this noncontrast examination. 2. Hepatic steatosis. Chest X-Ray 08/31/18 00:00 CONCLUSION: Underinflated examination without an acute cardiopulmonary abnormality identified. Hepatobiliary Scan Nuclear Medicine 08/31/18 00:00 CONCLUSION: 1. Nonvisualization of the gallbladder suggestive of cystic duct obstruction. Clinical correlation is recommended. - Procedures Date of procedure: 08/30/18 Pre-op diagnosis: Nausea and vomiting Procedure: PROCEDURE PERFORMED EGD with biopsy PROCEDURE: The procedure, risks and benefits were discussed with Patient/POA and informed consent was obtained. Anesthesia sedated Patient with Diprivan. Patient was placed in the left lateral decubitus position. EGD: The Pentax videoscope was introduced through the oropharynx and advanced to the second portion of the duodenum under direct visualization. Retroflexion was performed in the stomach. FINDINGS: The esophagus this was normal The stomach there was patchy erythema in the antrum and gastric body the antrum was biopsied otherwise unremarkable The duodenum this was normal ESTIMATED BLOOD LOSS: None SPECIMENS REMOVED: Gastric biopsy COMPLICATIONS: None IMPRESSION: Mild gastritis PLAN: Await biopsies Advance diet Monitor labs Assessment and Plan - Plan Intractable nausea and vomitingpatient has had 5 visits to the emergency department since the beginning of August as well as multiple visits to her PCP with complaints of nausea and emesis. Patient states that it has been intermittent for the past month but that she has only had a few good days. She reports significant weight loss secondary to above. Denies hematemesis and coffee ground emesis (is legally blind and lives alone) Patient denies any associated abdominal pain or changes in bowel habits (according to ER not has had a few episodes of diarrhea). She denies any ingestion of suspicious foods, recent travel, recent antibiotics (according to ER records has recently been on abx for UTI). Denies any associated fever or chills. Denies any history of GI issues. Has never had EGD or colonoscopy. Denies any illicit drug use, nicotine use. Does report rare ETOH. Work up: Liver ultrasound (08/24/2018) mild splenomegaly. Increased echogenicity of the liver suggesting fatty infiltration. Poor visualization of the common bile duct and pancreas. CT abdomen/pelvis with IV contrast (08/06/2010) no acute CT abnormality in the abdomen or pelvis. Normal appendix. No evidence for bowel obstruction. Diffuse decreased hepatic density consistent with hepatic steatosis versus medical liver disease. On admission patient severely hypoglycemic, labs consistent with acute kidney injury and significant amount of ketones present in the urine. 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 HIDA scan reviewed gallbladder unable to visualize possible 60 duct obstruction noted. MRI of the head pending. general surgery consult so patient will no options , although patient is against any type of surgical intervention. Dependent on patient's discharge planning she was still need to follow-up in the office in 2- 4 weeks PLAN: Diet as tolerated recommend non-greasy spicy foods soft foods eat slowly, Cardiac diet reflux precautions, elevate head of bed as needed Surgical consult biopsies pending Bowel regimen Monitor labs Supportive care Patient was seen per myself and Dr. Syed, note was written on his behalf
[2018-09-01] MEDS: Heparin - SQ 10,000 UNITS/ML Vial SQ SCH ×2 (09:23→20:04)
[2018-09-01] MEDS: Senna/Docusate Sodium 8.6/50 MG Tablet PO SCH ×2 (09:24→20:04)
[2018-09-01 18:01] LABS: Alanine Aminotransferase 22 U/L (10-53); Albumin 2.6 g/dL (3.4-5.0); Anion Gap 10 meq/L (5-15); Aspartate Aminotransferase 64 U/L (15-37); Calcium 8.7 mg/dL (8.5-10.1); Carbon Dioxide 21.6 meq/L (21.0-32.0); Chloride 105 meq/L (98-107); Glomerular Filtration Rate 89 mL/min (>89); Glucose,Random 101 mg/dL (74-106); Sodium 137 meq/L (136-145)
[2018-09-01 18:03] LABS: Alkaline Phosphatase 48 U/L (45-117); Total Protein 5.7 g/dL (6.4-8.2)
--- NOTE | 2018-09-01 18:36 | MB ---
cc: Clayton Kay MD DATE: 09/01/2018 REQUESTING PHYSICIAN: Gracie Ivey MD REASON FOR CONSULTATION: Possible cystic duct obstruction and cholecystitis. history of present illness: the patient is a 23-year-old female with a history of lifelong blindness and pituitary insufficiency, who developed recurrent vomiting for a period of one month. the patient was admitted to [facility] for further evaluation and underwent extensive workup. the patient does deny any abdominal pain. states that the vomiting has been going on for one month. it is not associated with any food or any aggravating or relieving symptoms. she has no other associated symptoms. she states she continues to be compliant with her medications for pituitary insufficiency. the patient did undergo a ct scan of abdomen and pelvis, which did not show any significant pathology. a nuclear medicine HIDA biliary scan did show cystic duct obstruction concerning for possible cholecystitis. the patient did also undergo esophagogastroduodenoscopy and biopsy, which did show a patchy erythema of the antrum and gastric body, but no other significant pathology. Laboratory values are unremarkable. Liver function tests: Unremarkable. REVIEW OF SYSTEMS: A 12-point review of systems conducted with the patient was negative except for the pertinent positives mentioned above in history of present illness. PAST MEDICAL HISTORY: Hypopituitarism, de Morsier syndrome, diabetes insipidus, hypothyroidism. PAST SURGICAL HISTORY: [place] teeth extraction. No other surgeries. ALLERGIES: SULFA. MEDICATIONS: 1. Cetirizine. 2. Desmopressin. 3. Ocella. 4. Levothyroxine. SOCIAL HISTORY: The patient denies alcohol, tobacco or illicit drug use. FAMILY HISTORY: Reviewed and noncontributory. PHYSICAL EXAMINATION: VITAL SIGNS: Heart rate 114, blood pressure 102/59, O2 saturation 97%, temperature 98.6 degrees Fahrenheit. GENERAL: The patient is a well-developed, well-nourished, female in no acute distress. HEENT: Head is normocephalic, atraumatic. EYES: Sclerae are anicteric. Oral cavity is clear. Airway is patent. NECK: Supple. No JVD. LUNGS: Breath sounds present bilaterally. Nonlabored breathing pattern. HEART: Regular rate and rhythm. No murmurs. ABDOMEN: Soft, obese. No surgical scars. No hernias. Nontender to palpation. Normal bowel sounds. BACK: No CVA tenderness. EXTREMITIES: No clubbing, cyanosis or edema. NEUROLOGIC: The patient is alert and oriented x 3. Mood, judgment, and insight are intact. No facial asymmetry. Grossly the patient is moving all extremities nonfocally. ASSESSMENT AND PLAN: The patient is a 23-year-old female with persistent refractory vomiting. Workup so far is negative, with the exception of a finding of a cystic duct obstruction of the gallbladder. The patient has no pain, which is atypical; however, painless cholecystitis and presentation with other symptoms, such as vomiting is well described. The patient likely does have symptoms due to her gallbladder and cystic duct obstruction. I discussed this with her, and discussed surgical and nonsurgical options for management, as well as the details of surgical management to include laparoscopic cholecystectomy, possible intraoperative cholangiogram and possible open procedure. The patient also understands that there is not a guarantee of relief of her symptoms with surgery, but removing the gallbladder is likely the problem and would eliminate this as a source of problems. The patient agrees to the plan. All questions were answered to her satisfaction. She will proceed to surgery in the next 24-48 hours, based on operating room availability. I would continue IV antibiotics and appropriate supportive care and pain medication and nausea medicines as needed. MD JOSIE Shoemaker/jelani , 03:10 PM , 03:23 PM
[2018-09-02] MEDS: KCL 10 mEq/D5W/NaCl 0.45% Inj 1,000 ML IV.SIG SCH ×2 (06:04→21:20)
[2018-09-02] MEDS: Levothyroxine 100 MCG Tablet PO SCH (06:05)
--- NOTE | 2018-09-02 07:43 | P.PN ---
Subjective Interval history: Follow-up on patient with ongoing nausea and vomiting. Patient seen and examined. HIDA + cystic duct obstruction. GS recommending surgery today. Patient initially consented then refused and now says she wants to undergo the surgery. She continues to have refractory nausea and vomiting. She has not been able to eat anything since her admission. She denies any abdominal pain. She denies any other medical complaints. Physical Exam Vital signs: Vital Signs 09/01/18 08:00 09/01/18 11:55 09/01/18 16:00 Temperature 98.5 F 98.6 F 98.4 F Pulse Rate 101 H 114 H 115 H Respiratory Rate 16 16 16 Blood Pressure 114/74 102/59 L 100/55 L Pulse Oximetry 98 97 97 09/01/18 20:00 09/02/18 00:00 09/02/18 04:00 Temperature 98.7 F 98.7 F 99.6 F Pulse Rate 65 95 H 105 H Respiratory Rate 18 20 18 Blood Pressure 106/67 105/50 L 91/60 L Pulse Oximetry 98 98 99 09/02/18 07:38 Temperature 98.3 F Pulse Rate 106 H Respiratory Rate 18 Blood Pressure 101/72 Pulse Oximetry 96 Intake & Output 09/01/18 09/02/18 09/02/18 18:59 06:59 18:59 Intake Total 1150 / 1150 1000 / 1000 Output Total 350 / 350 Balance 800 / 800 1000 / 1000 Intake: IV 1000 / 1000 1000 / 1000 D5W/1/2NS + KCL 10 mEq Inj 1, 1000 / 1000 1000 / 1000 000 ML @ 70 mls/hr IV.SIG . [id number] [facility] Rx#:[id number] Oral 150 / 150 Output: Emesis 350 / 350 Other: # Voids 2 Date of Last Bowel Movement 09/01/18 09/01/18 # Bowel Movements 2 # Emeses 1 Narrative: GENERAL: WDWN overweight young female, INAD. Awake and alert. +blindness. Appears comfortable. Poor historian, not very communicative. SKIN: Warm and dry. HEENT: Atraumatic. Normocephalic. Legally blind. No scleral icterus. No injection or drainage. No nasal bleeding or discharge. Mucous membranes pink and moist. NECK: Trachea midline. CARDIOVASCULAR: Tachycardic. No murmur auscultated. RESPIRATORY: No accessory muscle use. Clear to auscultation. Breath sounds equal bilaterally. GASTROINTESTINAL: Abdomen soft, nondistended, nontender to palpation. +BS. MUSCULOSKELETAL: Extremities without clubbing, cyanosis, or edema. No obvious deformities. NEUROLOGICAL: Awake and alert. No obvious cranial nerve deficits. Motor grossly within normal limits. Able to move all extremities. Normal speech. PSYCHIATRIC: Appropriate mood and affect; insight and judgment normal. Results - Labs CBC & Chem 7: 08/31/18 09:00 09/02/18 09:00 Laboratory Results - last 24 hr 09/01/18 09/01/18 09/01/18 08:10 13:21 16:52 Sodium 137 Potassium 3.0 L Chloride 105 Carbon Dioxide 21.6 Anion Gap 10 BUN Less than 1 L Creatinine 0.79 Estimated GFR 89 POC Glucose 114 H 106 Random Glucose 101 Calcium 8.7 Total Bilirubin 1.2 H AST 64 H ALT 22 Alkaline Phosphatase 48 Total Protein 5.7 L D Albumin 2.6 L 09/01/18 09/02/18 21:24 04:45 Sodium Potassium Chloride Carbon Dioxide Anion Gap BUN Creatinine Estimated GFR POC Glucose 105 103 Random Glucose Calcium Total Bilirubin AST ALT Alkaline Phosphatase Total Protein Albumin Microbiology 08/31/18 16:30 Stool Enteric Pathogens (PCR) - Final 08/31/18 18:30 Clean Catch Urine Urine Culture - Preliminary Immature growth - reincubate 08/31/18 10:25 Blood - Peripheral Aerobic Blood Culture - Preliminary No growth in 1 day 08/31/18 10:25 Blood - Peripheral Anaerobic Blood Culture - Preliminary No growth in 1 day 08/31/18 10:17 Blood - Peripheral Aerobic Blood Culture - Preliminary No growth in 1 day 08/31/18 10:17 Blood - Peripheral Anaerobic Blood Culture - Preliminary No growth in 1 day - Procedures Date of procedure: 08/30/18 Pre-op diagnosis: Nausea and vomiting Procedure: PROCEDURE PERFORMED EGD with biopsy PROCEDURE: The procedure, risks and benefits were discussed with Patient/POA and informed consent was obtained. Anesthesia sedated Patient with Diprivan. Patient was placed in the left lateral decubitus position. EGD: The Pentax videoscope was introduced through the oropharynx and advanced to the second portion of the duodenum under direct visualization. Retroflexion was performed in the stomach. FINDINGS: The esophagus this was normal The stomach there was patchy erythema in the antrum and gastric body the antrum was biopsied otherwise unremarkable The duodenum this was normal ESTIMATED BLOOD LOSS: None SPECIMENS REMOVED: Gastric biopsy COMPLICATIONS: None IMPRESSION: Mild gastritis PLAN: Await biopsies Advance diet Monitor labs Assessment and Plan - Assessment (1) Intractable nausea and vomiting Code(s): R11.2 - Nausea with vomiting, unspecified Status: Acute (2) CARLOS ENRIQUE (acute kidney injury) Code(s): N17.9 - Acute kidney failure, unspecified Status: Acute (3) Hypoglycemia Code(s): E16.2 - Hypoglycemia, unspecified Status: Acute - Plan 23-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 Acute cholecystitis Intractable Nausea/Vomiting: ongoing x6 wks, minimal improvement w/ antiemetics. Hyperbilirubinemia CT abd/pelvis without any abnormality except for hepatic steatosis continues to have ongoing nausea and vomiting HIDA scan suggestive of cystic duct obstruction -GS following, appreciate assistance. Patient is NPO for lap alissa later today. IVF running. -Continue Zofran/Compazine and Tigan. -GI following, appreciate assistance. s/p EGD showing only mild gastritis. -Continue on IVF for hydration -unable to tolerate diet Hypokalemia, secondary to ongoing GI loss K 3.3 this am -additional IV replacement ordered -repeat BMP in am to monitor response CARLOS ENRIQUE: Suspect secondary to poor po hydration secondary to intractable N/V, resolved Creatinine 1.17, previously 0.82 on 08/24/18 -creatinine now 0.79 -continue IVF for hydration while patient is NPO -monitor I/O -avoid nephrotoxic agents -continue to monitor kidney function closely Hypoglycemia: BS 40's on arrival, s/p D50 w/ improvement BS better but still running low 100s -continue on D5 -Accu-Checks -monitor BS closely -hypoglycemic protocol H/o Panhypopituitarism Demorsier syndrome Diabetes insipidus TSH 5.870 -continue on home dose of levothyroxine and Desmopressin -has upcoming appt w/ [employer] History Professor 09/05/18 DVT Prophylaxis: SCD/Teds Code Status: Full Discussed Condition With: patient, nursing staff, Dr. Benoit Discharge Planning: Not ready for discharge. Plan for lab alissa today.
[2018-09-02 09:39] LABS: Anion Gap 9 meq/L (5-15); Carbon Dioxide 21.6 meq/L (21.0-32.0); Chloride 104 meq/L (98-107); Glomerular Filtration Rate 86 mL/min (>89); Glucose,Random 102 mg/dL (74-106); Sodium 135 meq/L (136-145)
[2018-09-02 09:40] LABS: Potassium 3.3 meq/L (3.5-5.1)
--- NOTE | 2018-09-02 09:59 | P.PNGI ---
Subjective Interval history: Resting in the bed dozing lightly currently n.p.o. for kerry maxwell this afternoon Had some vomiting x2 episodes over the past 12 hours, no abdominal pain <Desiree Del Angel - Last Filed: 09/02/18 09:59> Physical Exam Vital signs: Vital Signs 09/01/18 11:55 09/01/18 16:00 09/01/18 20:00 Temperature 98.6 F 98.4 F 98.7 F Pulse Rate 114 H 115 H 65 Respiratory Rate 16 16 18 Blood Pressure 102/59 L 100/55 L 106/67 Pulse Oximetry 97 97 98 09/02/18 00:00 09/02/18 04:00 09/02/18 07:38 Temperature 98.7 F 99.6 F 98.3 F Pulse Rate 95 H 105 H 106 H Respiratory Rate 20 18 18 Blood Pressure 105/50 L 91/60 L 101/72 Pulse Oximetry 98 99 96 Intake & Output 09/01/18 09/02/18 09/02/18 18:59 06:59 18:59 Intake Total 1150 / 1150 1000 / 1000 Output Total 350 / 350 Balance 800 / 800 1000 / 1000 Intake: IV 1000 / 1000 1000 / 1000 D5W/1/2NS + KCL 10 mEq Inj 1, 1000 / 1000 1000 / 1000 000 ML @ 70 mls/hr IV.SIG . [id number] [facility] Rx#:[id number] Oral 150 / 150 Output: Emesis 350 / 350 Other: # Voids 2 Date of Last Bowel Movement 09/01/18 09/01/18 # Bowel Movements 2 # Emeses 1 - Constitutional morbidly obese, cooperative - Routine HEENT Exam ENT: Present: mucous membranes dry - Routine Respiratory Exam Present: CTA bilaterally - Routine Abdominal Exam Present: soft (Round, obese,), normoactive bowel sounds <MerDesiree Edmond - Last Filed: 09/02/18 09:59> Vital signs: Vital Signs 09/01/18 16:00 09/01/18 20:00 09/02/18 00:00 Temperature 98.4 F 98.7 F 98.7 F Pulse Rate 115 H 65 95 H Respiratory Rate 16 18 20 Blood Pressure 100/55 L 106/67 105/50 L Pulse Oximetry 97 98 98 09/02/18 04:00 09/02/18 07:38 09/02/18 11:27 Temperature 99.6 F 98.3 F 98.2 F Pulse Rate 105 H 106 H 106 H Respiratory Rate 18 18 16 Blood Pressure 91/60 L 101/72 93/60 L Pulse Oximetry 99 96 98 Intake & Output 09/01/18 09/02/18 09/02/18 18:59 06:59 18:59 Intake Total 1150 / 1150 1000 / 1000 100 / 100 Output Total 350 / 350 Balance 800 / 800 1000 / 1000 100 / 100 Intake: IV 1000 / 1000 1000 / 1000 100 / 100 D5W/1/2NS + KCL 10 mEq Inj 1, 1000 / 1000 1000 / 1000 000 ML @ 70 mls/hr IV.SIG . [id number] [facility] Rx#:[id number] KCl 20 mEq Premix Inj 20 meq In 100 / 100 100 ml @ 50 mls/hr IV.SIG Q2H [facility] Rx#:[id number] Oral 150 / 150 Output: Emesis 350 / 350 Other: # Voids 2 Date of Last Bowel Movement 09/01/18 09/01/18 09/01/18 # Bowel Movements 2 # Emeses 1 <Sharon Knowles - Last Filed: 09/02/18 14:34> Results - Labs CBC & Chem 7: 08/31/18 09:00 09/02/18 09:00 Laboratory Results - last 24 hr 09/01/18 09/01/18 09/01/18 13:21 16:52 21:24 Sodium 137 Potassium 3.0 L Chloride 105 Carbon Dioxide 21.6 Anion Gap 10 BUN Less than 1 L Creatinine 0.79 Estimated GFR 89 POC Glucose 106 105 Random Glucose 101 Calcium 8.7 Total Bilirubin 1.2 H AST 64 H ALT 22 Alkaline Phosphatase 48 Total Protein 5.7 L D Albumin 2.6 L 09/02/18 09/02/18 09/02/18 04:45 08:20 09:00 Sodium 135 L Potassium 3.3 L Chloride 104 Carbon Dioxide 21.6 Anion Gap 9 BUN Less than 1 L Creatinine 0.81 Estimated GFR 86 L POC Glucose 103 117 H Random Glucose 102 Calcium 9.0 Total Bilirubin AST ALT Alkaline Phosphatase Total Protein Albumin Microbiology 08/31/18 18:30 Clean Catch Urine Urine Culture - Final >100,000 cfu/mL mixed adrian (probable contaminants) 08/31/18 16:30 Stool Enteric Pathogens (PCR) - Final 08/31/18 10:25 Blood - Peripheral Aerobic Blood Culture - Preliminary No growth in 1 day 08/31/18 10:25 Blood - Peripheral Anaerobic Blood Culture - Preliminary No growth in 1 day 08/31/18 10:17 Blood - Peripheral Aerobic Blood Culture - Preliminary No growth in 1 day 08/31/18 10:17 Blood - Peripheral Anaerobic Blood Culture - Preliminary No growth in 1 day - Procedures Date of procedure: 08/30/18 Pre-op diagnosis: Nausea and vomiting Procedure: PROCEDURE PERFORMED EGD with biopsy PROCEDURE: The procedure, risks and benefits were discussed with Patient/POA and informed consent was obtained. Anesthesia sedated Patient with Diprivan. Patient was placed in the left lateral decubitus position. EGD: The Pentax videoscope was introduced through the oropharynx and advanced to the second portion of the duodenum under direct visualization. Retroflexion was performed in the stomach. FINDINGS: The esophagus this was normal The stomach there was patchy erythema in the antrum and gastric body the antrum was biopsied otherwise unremarkable The duodenum this was normal ESTIMATED BLOOD LOSS: None SPECIMENS REMOVED: Gastric biopsy COMPLICATIONS: None IMPRESSION: Mild gastritis PLAN: Await biopsies Advance diet Monitor labs <Desiree Del Angel - Last Filed: 09/02/18 09:59> - Labs CBC & Chem 7: 08/31/18 09:00 09/02/18 09:00 Laboratory Results - last 24 hr 09/01/18 09/01/18 09/02/18 16:52 21:24 04:45 Sodium 137 Potassium 3.0 L Chloride 105 Carbon Dioxide 21.6 Anion Gap 10 BUN Less than 1 L Creatinine 0.79 Estimated GFR 89 POC Glucose 105 103 Random Glucose 101 Calcium 8.7 Total Bilirubin 1.2 H AST 64 H ALT 22 Alkaline Phosphatase 48 Total Protein 5.7 L D Albumin 2.6 L 09/02/18 09/02/18 09/02/18 08:20 09:00 12:28 Sodium 135 L Potassium 3.3 L Chloride 104 Carbon Dioxide 21.6 Anion Gap 9 BUN Less than 1 L Creatinine 0.81 Estimated GFR 86 L POC Glucose 117 H 96 Random Glucose 102 Calcium 9.0 Total Bilirubin AST ALT Alkaline Phosphatase Total Protein Albumin Microbiology 08/31/18 16:30 Stool Cryptosporidium Antigen - Final Negative - No Cryptosporicium antigen detected In selected cases of patients with a history of immunosuppression or foreign travel, a full ova and parasites examination may be desired. Contact the microbiology lab if full workup is indicated and subit another specimen for testing. 08/31/18 16:30 Stool Giardia Antigen (JUAN) - Final Negative - No Giardia Antigen detected In selected cases of patients with a history of immunosuppression or foreign travel, a full ova and parasites examination may be desired. Contact the microbiology lab if full workup is indicated and subit another specimen for testing. 08/31/18 10:25 Blood - Peripheral Aerobic Blood Culture - Preliminary No growth in 2 days 08/31/18 10:25 Blood - Peripheral Anaerobic Blood Culture - Preliminary No growth in 2 days 08/31/18 10:17 Blood - Peripheral Aerobic Blood Culture - Preliminary No growth in 2 days 08/31/18 10:17 Blood - Peripheral Anaerobic Blood Culture - Preliminary No growth in 2 days 08/31/18 18:30 Clean Catch Urine Urine Culture - Final >100,000 cfu/mL mixed adrian (probable contaminants) 08/31/18 16:30 Stool Enteric Pathogens (PCR) - Final <Sharon Knowles - Last Filed: 09/02/18 14:34> Assessment and Plan - Plan Intractable nausea and vomitingpatient has had 5 visits to the emergency department since the beginning of August as well as multiple visits to her PCP with complaints of nausea and emesis. Patient states that it has been intermittent for the past month but that she has only had a few good days. She reports significant weight loss secondary to above. Denies hematemesis and coffee ground emesis (is legally blind and lives alone) Patient denies any associated abdominal pain or changes in bowel habits (according to ER not has had a few episodes of diarrhea). She denies any ingestion of suspicious foods, recent travel, recent antibiotics (according to ER records has recently been on abx for UTI). Denies any associated fever or chills. Denies any history of GI issues. Has never had EGD or colonoscopy. Denies any illicit drug use, nicotine use. Does report rare ETOH. Work up: Liver ultrasound (08/24/2018) mild splenomegaly. Increased echogenicity of the liver suggesting fatty infiltration. Poor visualization of the common bile duct and pancreas. CT abdomen/pelvis with IV contrast (08/06/2010) no acute CT abnormality in the abdomen or pelvis. Normal appendix. No evidence for bowel obstruction. Diffuse decreased hepatic density consistent with hepatic steatosis versus medical liver disease. On admission patient severely hypoglycemic, labs consistent with acute kidney injury and significant amount of ketones present in the urine. 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 HIDA scan reviewed gallbladder unable to visualize possible 60 duct obstruction noted. MRI of the head pending. general surgery consult so patient will no options , although patient is against any type of surgical intervention. Dependent on patient's discharge planning she was still need to follow-up in the office in 2- 4 weeks 09/02/2018 patient was evaluated per general surgery and is currently on the schedule for laparoscopic cholecystectomy this p.m. some of patient's vomiting was more controlled over the past 24 hours but the nurse did note 2 episodes of vomiting in the past 12 hours. GI will sign off for now since patient is having surgical procedure and we can follow in the office as outpatient to review biopsies from EGD. Symptoms should be managed status post cholecystectomy. Last hemoglobin noted 13.6 no obvious bleeding PLAN: Diet n.p.o. reflux precautions, elevate head of bed as needed biopsies pending Bowel regimen Monitor labs Supportive care Patient was seen per myself and Dr. Knowles, note was written on his behalf <Desiree Del Angel - Last Filed: 09/02/18 09:59> - Plan Patient was seen and examined, agree with above note, patient is getting lap alissa today, we will follow-up as needed <Sharon Knowles - Last Filed: 09/02/18 14:34>
[2018-09-02] MEDS: Heparin - SQ 10,000 UNITS/ML Vial SQ SCH ×2 (10:43→21:17)
[2018-09-02] MEDS: Senna/Docusate Sodium 8.6/50 MG Tablet PO SCH ×2 (10:55→21:18)
[2018-09-02] MEDS ORDERED: Potassium Chlor 20 mEq Premix 20 MEQ/100 ML PIGGYBACK IV.SIG SCH (11:00)
[2018-09-02] MEDS ORDERED: Bupivacaine/Epinephrine Inj 0.25% 50 ML Vial ONE (14:12)
[2018-09-02] MEDS ORDERED: Chlorhexidine Gluconate 2% 1 Pack (2 Cloths) TOPICAL ONE (15:16)
[2018-09-02] MEDS ORDERED: Metoprolol Tartrate 25 MG Tablet PO ONE (15:16)
[2018-09-02] MEDS ORDERED: Sodium Chlor 0.9% Inj 500 ML IV.SIG ONE (16:00)
[2018-09-02] MEDS ORDERED: Succinylcholine Inj 100 MG/5 ML Syringe IV.PUSH ONE (16:37)
[2018-09-02] MEDS ORDERED: Lidocaine PF 1% Inj 5 ML Syringe OTHER ONE (16:37)
[2018-09-02] MEDS ORDERED: Hydrocortisone Sod Succinate 100 MG Vial ONE (17:05)
[2018-09-02] MEDS ORDERED: Sugammadex Inj 200 MG/2 ML Vial IV.PUSH ONE (17:38)
[2018-09-02] MEDS ORDERED: Morphine Inj 4 MG/ML Vial IV.PUSH PRN (18:18)
[2018-09-02] MEDS ORDERED: fentaNYL Citrate Inj 100 MCG/2 ML Ampul ONE (18:51)
--- NOTE | 2018-09-02 20:41 | MP ---
cc: Clayton Kay MD DATE OF OPERATION: 09/02/2018 PREOPERATIVE DIAGNOSES: 1. Chronic nausea. 2. HIDA scan with nonfilling of the gallbladder. POSTOPERATIVE DIAGNOSIS: 1. Chronic nausea. 2. HIDA scan with nonfilling of the gallbladder. 3. Grossly abnormal liver, possible severe fatty liver disease. PROCEDURE PERFORMED: 1. Laparoscopic cholecystectomy. 2. Laparoscopic Nash-Cut liver biopsy. SURGEON: Clayton Kay MD PHLEBOTOMY COORDINATOR: Staff. ANESTHESIA: General and local anesthetic. ESTIMATED BLOOD LOSS: Less than 10 mL. FINDINGS: 1. Normal-appearing gallbladder, but filled with very dark abnormal biliary content without stones. 2. Very abnormal-appearing liver likely severe fatty disease with no gross evidence of cirrhotic change. INDICATIONS FOR PROCEDURE: The patient is a 23-year-old female with history of pituitary insufficiency and blindness since , who developed several weeks of increasing nausea. The patient underwent workup with no significant findings and eventually was admitted to [facility] for further evaluation. Upper endoscopy was done, which was negative for any significant abnormality. HIDA scan was done and showed nonvisualization of the gallbladder concerning for an acute or chronic gallbladder problem. General Surgery was consulted and after I discussed these findings with the patient including treatment with laparoscopic cholecystectomy. The patient did agree to undergo the procedure. I discussed the risks, benefits and alternatives extensively with the patient that she agreed to undergo laparoscopic cholecystectomy. DESCRIPTION OF PROCEDURE: After informed consent was obtained, the patient was taken to the operating room and placed in the supine position and placed under general endotracheal anesthesia. The patient's abdomen was prepped and draped in sterile fashion. Timeout was performed. The abdomen was entered with an Optiview technique with a 5 mm 0-degree camera to the left of the umbilicus. We directly entered the abdominal cavity under visualization without difficulty. We insufflated the abdomen and then placed a 5 mm 30-degree camera into the abdomen and surveyed the abdomen. There was no evidence of any complication from our entry. There was a very abnormal-appearing liver likely severely fatty disease without any cirrhotic change. We then placed a 10 mm trocar in the subxiphoid position and two 5 mm trocars in right upper quadrant, all under direct visualization of the laparoscope. Local anesthetic was used at all port sites. We were then able to grasp the gallbladder and retracted upward. This is a relatively appearing gallbladder. We easily dissected out the triangle of Calot and the cystic duct and cystic artery and the critical view of safety was obtained. We doubly clipped the cystic duct and singly clipped the cystic artery proximal and clipped the structures distal as well, and divided these with laparoscopic EndoShears. Hook electrocautery was used to take the gallbladder off the gallbladder fossa without difficulty. There was a small cholecystostomy made at the dome of the gallbladder and used a suction duct cleaner device to suction out some black very dark abnormal-appearing bile without any significant spillage. The gallbladder was removed from the subxiphoid port without EndoCatch bag through the port itself. It was passed off for permanent processing. We irrigated out the gallbladder fossa and all suctioning was clear. We then used a Nash-Cut biopsy through a separate stab incision in the right upper quadrant to obtain one Nash-Cut biopsy in segment 4 of the liver. This was adequate tissue specimen and was sent for permanent processing for pathology. We used Bovie electrocautery to get hemostasis. We did place some Surgicel over the liver biopsy site as well as some of the gallbladder fossa for prophylaxis for any delayed bleeding issue. We turned our attention towards completion and removed all ports under visualization of the laparoscope and expressed pneumoperitoneum. We closed all the port sites with 4-0 Monocryl and Dermabond. The patient was discontinued from anesthesia and taken to the PACU in stable condition. The patient tolerated the procedure well. No apparent complications and I was present and scrubbed for the entire procedure. Clayton Kay MD AWG/sv , 06:25 PM , 06:37 PM
[2018-09-03] MEDS: Levothyroxine 100 MCG Tablet PO SCH (05:48)
[2018-09-03] MEDS: Senna/Docusate Sodium 8.6/50 MG Tablet PO SCH (09:27)
[2018-09-03] MEDS: Heparin - SQ 10,000 UNITS/ML Vial SQ SCH (09:27)
[2018-09-03] MEDS: KCL 10 mEq/D5W/NaCl 0.45% Inj 1,000 ML IV.SIG SCH (12:49)
--- NOTE | 2018-09-03 13:40 | P.DS ---
Date of admission: 08/28/18 21:04 Primary care physician: Selina Clay MD, R1 Attending physician on discharge: Donald Saucedo Anticipated date of discharge: 09/03/18 Brief History from admission: This is a 23-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 This is pt' s 5th ER visit in the last month for similar complaints, CT Abd/Pelvis 08/06/18 w/ no acute findings. Has also seen PCP on multiple occasions for same, however no improvement w/ antiemetics. Does have upcoming appt w/ [employer] on 09/05 and GI on 09/04/18. On arrival, pt noted to be hypoglycemia w/ BS 40's, s/p D50 w/ improvement, BS now stabilized. BP 142/97, HR 99, O2 afebrile. CBC unremarkable. Creatinine 1.17, previously 0.82 on . AG 18. S/p Zofran and Compazine in ER w/ some improvement. Patient update on day of discharge: Follow-up nausea, vomiting, cholelithiasis status post laparoscopic cholecystectomy. Patient seen and examined sitting in bed, family at bedside patient stated he wants to go home now. Family/identified to be her mother, stated that she usually lives by herself and she just had intractable nausea and vomiting associated to the hospital. Patient states that she has been going up to the bathroom without a problem. Denies any nausea or vomiting today , denies any abdominal pain. Patient denies any headache or dizziness, chest pain shortness of breath, denies any fever or chills. Discussed with general surgery, patient cleared to go home if tolerates regular diet. DS: Diagnosis - Discharge Diagnosis (1) Cholecystitis Status: Acute (2) Intractable nausea and vomiting Status: Acute (3) CARLOS ENRIQUE (acute kidney injury) Status: Acute (4) Hypoglycemia Status: Acute DS: Medications - Discharge Medications Prescriptions: hydrocodone-acetaminophen 1 tab PO Q4H PRN #15 tab PRN Reason: acute post op pain exception DS: Summary Hospital Course: This is a 23-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 daily home intractable Nausea/Vomiting.ongoing x6 wks, minimal improvement w/ antiemetics. HIDA scan suggestive of cystic duct Obstruction. CT abd/pelvis without any abnormality except for hepatic steatosis. Patient has undergone left cholecystectomy. Day 1 patient has relieved with the nausea and vomiting and denies any pain, tolerating diet. Discussed with general surgery cleared to discharge when tolerating p.o. diet. - Time Spent with Patient Total time spent providing and/or coordinating discharge services: Less than 30 minutes - Quality: VTE Deep Vein Thrombosis/Pulmonary Embolism Present on Admission: No Exam Vital signs: Vital Signs 09/02/18 18:30 09/02/18 18:45 09/02/18 19:00 Temperature 97.5 F L Pulse Rate 104 H 101 H 93 H Respiratory Rate 14 14 16 Blood Pressure 128/67 120/66 121/72 Pulse Oximetry 93 L 96 95 09/02/18 19:15 09/02/18 20:30 09/03/18 00:00 Temperature 97.2 F L 97.8 F 98.2 F Pulse Rate 91 H 89 86 Respiratory Rate 24 17 17 Blood Pressure 120/80 131/81 137/76 Pulse Oximetry 97 97 98 09/03/18 04:00 09/03/18 08:00 09/03/18 12:00 Temperature 98.2 F 97.7 F 97.2 F L Pulse Rate 102 H 99 H 88 Respiratory Rate 18 18 18 Blood Pressure 129/86 103/65 120/78 Pulse Oximetry 98 95 95 Intake & Output 09/02/18 09/03/18 09/03/18 18:59 06:59 18:59 Intake Total 1000 / 1000 1000 / 1000 Output Total 155 / 155 1400 / 1400 Balance 845 / 845 -400 / -400 Weight 122.2 kg Intake: IV 100 / 100 1000 / 1000 D5W/1/2NS + KCL 10 mEq Inj 1, 1000 / 1000 000 ML @ 70 mls/hr IV.SIG . [id number] [facility] Rx#:[id number] KCl 20 mEq Premix Inj 20 meq In 100 / 100 100 ml @ 50 mls/hr IV.SIG Q2H [facility] Rx#:[id number] Anesthesia Amount 900 / 900 Output: Urine 150 / 150 1400 / 1400 Estimated Blood Loss 5 / 5 Other: Date of Last Bowel Movement 09/01/18 Narrative: GENERAL: Well-developed, well-nourished, young female, in no apparent distress. positive for blindness SKIN: Warm and dry. Multiple left-sided with Steri-Strips clean dry and intact HEAD: Atraumatic. Normocephalic. EYES: Pupils equal and round. No scleral icterus. No injection or drainage. ENT: No nasal bleeding or discharge. Mucous membranes pink and moist. NECK: Trachea midline. No JVD. CARDIOVASCULAR: Regular rate and rhythm. RESPIRATORY: No accessory muscle use. Clear to auscultation. Breath sounds equal bilaterally. GASTROINTESTINAL: Abdomen obese, soft, non-tender, nondistended. Hepatic and splenic margins not palpable. MUSCULOSKELETAL: Extremities without clubbing, cyanosis, or edema. No obvious deformities. NEUROLOGICAL: Awake and alert. No obvious cranial nerve deficits. Motor grossly within normal limits. Generalized weakness moving all 4 extremities . Normal speech. PSYCHIATRIC: Appropriate mood and affect; insight and judgment normal. Results Procedures completed during hospitalization: Date of procedure: 08/30/18 Pre-op diagnosis: Nausea and vomiting Procedure: PROCEDURE PERFORMED EGD with biopsy PROCEDURE: The procedure, risks and benefits were discussed with Patient/POA and informed consent was obtained. Anesthesia sedated Patient with Diprivan. Patient was placed in the left lateral decubitus position. EGD: The Pentax videoscope was introduced through the oropharynx and advanced to the second portion of the duodenum under direct visualization. Retroflexion was performed in the stomach. FINDINGS: The esophagus this was normal The stomach there was patchy erythema in the antrum and gastric body the antrum was biopsied otherwise unremarkable The duodenum this was normal ESTIMATED BLOOD LOSS: None SPECIMENS REMOVED: Gastric biopsy COMPLICATIONS: None IMPRESSION: Mild gastritis PLAN: Await biopsies Advance diet Monitor labs Pending studies at discharge: Pending at discharge 08/30/18 08:46 Surgical [PTH] Routine Labs on day of discharge: Labs from last 24 hours 09/03/18 09/03/18 09/02/18 12:19 07:07 19:14 POC Glucose 126 H 188 H 134 H 09/02/18 15:31 POC Glucose 87 Preliminary micro results at discharge 08/31/18 10:25 Aerobic Blood Culture - Preliminary Blood - Peripheral No growth in 3 days Anaerobic Blood Culture - Preliminary No growth in 3 days 08/31/18 10:17 Aerobic Blood Culture - Preliminary Blood - Peripheral No growth in 3 days Anaerobic Blood Culture - Preliminary No growth in 3 days - Impressions ITS Impressions Abdomen CT 08/31/18 00:00 CONCLUSION: 1. No abnormality is identified to explain the abdominal pain on this noncontrast examination. 2. Hepatic steatosis. Chest X-Ray 08/31/18 00:00 CONCLUSION: Underinflated examination without an acute cardiopulmonary abnormality identified. Hepatobiliary Scan Nuclear Medicine 08/31/18 00:00 CONCLUSION: 1. Nonvisualization of the gallbladder suggestive of cystic duct obstruction. Clinical correlation is recommended. Discharge Plan - Discharge Disposition Patient Disposition: Discharge Home - Discharge Condition Condition: Fair - Discharge Order Discharge Orders: Discharge Order (Routine); Ordered 09/03/18 Ordered By: Yakelin Rodriguez - Discharge Details Discharge Comment: follow up with Dr Avalos Sep 16 at 11:30 - Physicians Team Primary Care Provider: Selina Clay Attending Provider: Donald Saucedo Other Providers: Radu Avalos MD ; Clayton Kay MD
--- NOTE | 2018-09-03 13:44 | P.PNGS ---
Subjective Interval history: Resting in bed Ate lunch without any nausea Feels ready to go home Physical Exam Vital signs: Vital Signs 09/02/18 18:30 09/02/18 18:45 09/02/18 19:00 Temperature 97.5 F L Pulse Rate 104 H 101 H 93 H Respiratory Rate 14 14 16 Blood Pressure 128/67 120/66 121/72 Pulse Oximetry 93 L 96 95 09/02/18 19:15 09/02/18 20:30 09/03/18 00:00 Temperature 97.2 F L 97.8 F 98.2 F Pulse Rate 91 H 89 86 Respiratory Rate 24 17 17 Blood Pressure 120/80 131/81 137/76 Pulse Oximetry 97 97 98 09/03/18 04:00 09/03/18 08:00 09/03/18 12:00 Temperature 98.2 F 97.7 F 97.2 F L Pulse Rate 102 H 99 H 88 Respiratory Rate 18 18 18 Blood Pressure 129/86 103/65 120/78 Pulse Oximetry 98 95 95 Intake & Output 09/02/18 09/03/18 09/03/18 18:59 06:59 18:59 Intake Total 1000 / 1000 1000 / 1000 Output Total 155 / 155 1400 / 1400 Balance 845 / 845 -400 / -400 Weight 122.2 kg Intake: IV 100 / 100 1000 / 1000 D5W/1/2NS + KCL 10 mEq Inj 1, 1000 / 1000 000 ML @ 70 mls/hr IV.SIG . [id number] [facility] Rx#:[id number] KCl 20 mEq Premix Inj 20 meq In 100 / 100 100 ml @ 50 mls/hr IV.SIG Q2H [facility] Rx#:[id number] Anesthesia Amount 900 / 900 Output: Urine 150 / 150 1400 / 1400 Estimated Blood Loss 5 / 5 Other: Date of Last Bowel Movement 09/01/18 Narrative: Alert and awake Abd: lap sites c/d/i; nondistended; mild post op tenderness Results - Labs 08/31/18 09:00 09/02/18 09:00 Laboratory Results - last 24 hr 09/02/18 09/02/18 09/03/18 15:31 19:14 07:07 POC Glucose 87 134 H 188 H 09/03/18 12:19 POC Glucose 126 H - Imaging Imaging: ITS Impressions Abdomen CT 08/31/18 00:00 CONCLUSION: 1. No abnormality is identified to explain the abdominal pain on this noncontrast examination. 2. Hepatic steatosis. Chest X-Ray 08/31/18 00:00 CONCLUSION: Underinflated examination without an acute cardiopulmonary abnormality identified. Hepatobiliary Scan Nuclear Medicine 08/31/18 00:00 CONCLUSION: 1. Nonvisualization of the gallbladder suggestive of cystic duct obstruction. Clinical correlation is recommended. Assessment and Plan - Assessment (1) Intractable nausea and vomiting Code(s): R11.2 - Nausea with vomiting, unspecified Status: Acute Plan: 23 year old female POD1 lap alissa; liver biopsy -Tolerated lunch -Pain controlled -GS clear for DC -Okay to restart home meds -[place] rx on chart -Follow up with Dr. Kay Sep 16 at 11:30AM
== END 2018-09-03 14:52 | disposition home or self-care (01) ==
LOC: NEPE 16:50 → NEDA 16:50 → NEPHCDU 21:51 → NEDH 08-29 10:21 → NEPHCDU 08-29 10:21 → N07 09-02 14:26
PROVIDERS: ADMIT Hospitalist; ATTEND Hospitalist